=== PATIENT | male | born 1965 | race Two or more races ===

== ENCOUNTER 2021-05-04 01:48 | Observation (INO) | payer OTHER ==
[~2021-05-04] VITALS: Ht 167.6 cm; Wt 100.5 kg
--- NOTE | 2021-05-04 01:58 | PHYS DOC ---
Past Medical History Past Medical History: Angina, Asthma, CAD, Diabetes-Type II, [place] Additional Past Surgical Histo: Cardiac stents Smoking Status: Former Smoker Alcohol Use: None Drug Use: None General Adult EDM: Chief Complaint: CHEST PAIN HPI: HPI: Patient is a 56 year old male presents with report of midsternal chest pain with radiation to left arm that occurred upon laying down to bed this evening. Patient reports sensation of shooting pain down his left side. Patient does report history of angina and trialed taking 3 of his sublingual nitros without improvement. Patient with significant cardiac risk factors including prior CAD with stent placement, high blood pressure, diabetes, and former smoking. Denies trauma. Denies leg swelling or calf tenderness. Denies history of PE/DVT. Denies cough or fever. Denies known exposure to COVID-19. Reports received COVID-19 vaccination with Diagnoplex x2. Review of Systems: Review of Systems: Constitutional: Denies fever or chills Eyes: Denies redness or eye pain HENT: Denies nasal congestion or sore throat Respiratory: Denies cough or shortness of breath Cardiovascular: Reports chest pain; denies palpitations GI: Denies abdominal pain, nausea, or vomiting : Denies dysuria or hematuria Musculoskeletal: Denies back pain or joint pain Integument: Denies rash or skin lesions Neurologic: Denies headache, focal weakness or sensory changes Complete systems were reviewed and found to be within normal limits, except as documented in this note. Heart Score: C/O Chest Pain: Yes HEART Score for Chest Pain: HEART Score for Chest Pain Response (Comments) Value History Moderately Suspicious 1 ECG Normal 0 Age >45 - < 65 1 Risk Factors >3 Risk Factors or Hx CAD 2 Troponin < Normal Limit 0 Total 4 Risk Factors: Risk Factors: DM, Current or recent (<one month) smoker, HTN, HLP, family history of CAD, obesity. Risk Scores: Score 0 - 3: 2.5% MACE over next 6 weeks - Discharge Home Score 4 - 6: 20.3% MACE over next 6 weeks - Admit for Clinical Observation Score 7 - 10: 72.7% MACE over next 6 weeks - Early Invasive Strategies Physical Exam: PE: Constitutional: Well developed, well nourished, no acute distress, non-toxic appearance HENT: Normocephalic, atraumatic Eyes: Conjunctiva normal, no discharge Neck: Normal range of motion, supple Lungs & Thorax: No respiratory distress, equal chest rise and fall Abdomen: Soft, no tenderness Skin: Warm, dry, no erythema, no rash Back: No tenderness, no CVA tenderness Extremities: No tenderness, ROM intact, no edema Neurologic: Alert and oriented X 3, no focal deficits noted Psychologic: Affect anxious, judgment normal EKG: EKG: @0152 Sinus tachycardia at 105bpm, NO ST elevation, QRS 86ms, QT/QTc 304/405ms, q wave in III @0231 Sinus tachycardia at 106bpm, NO ST elevation, QRS 84ms, QT/QTc 308/411ms, No significant change from prior. Radiology/Procedures: Radiology/Procedures: PROCEDURE: CT ANGIOGRAPHY CHEST CT angiogram of the chest with contrast: Reason for examination: Chest pain. Evaluate for pulmonary embolus. Helical images were obtained through the chest with intravenous administration of 100 cc Omnipaque 350 using PE protocol. 3-D MIPS reconstruction was performed in sagittal and coronal planes. Exposure: One or more of the following individualized dose reduction techniques were utilized for this examination: 1. Automated exposure control 2. Adjustment of the mA and/or kV according to patient size 3. Use of iterative reconstruction technique. The trachea and mainstem bronchi show no intraluminal lesions. No abnormality seen at the esophagus. The thoracic aorta is normal in course and caliber. The heart size is normal with no pericardial effusion. There is no evidence of pulmonary embolus. The lung zhu show no infiltrates, pleural effusions or pneumothorax. No acute bony abnormalities are seen thorax. There is fatty infiltration in the liver without a focal lesion. No abnormality seen at the spleen, adrenal glands, gallbladder or pancreas. IMPRESSION: No evidence of pulmonary embolus. Fatty liver. No acute abnormality seen in the chest. Electronically signed by: Alvina Dominguez MD (05/04/2021 4:32 AM) AD Course & Med Decision Making: Course & Med Decision Making Pertinent Labs and Imaging studies reviewed. (See chart for details) Patient with significant cardiac risk factors presents with report of chest pain with radiation to left arm. EKG stable. Labs obtained and posted to chart. Troponin within normal limits. Hyperglycemia addressed. CTA chest without acute process. HEART score 4. Concern may be secondary to unstable angina. Patient requiring admission for further evaluation and treatment. Discussed with Dr. Navas (hospitalist) who is in agreement with admission. Cardiology consultation placed. Discussed findings and plan with patient, who acknowledges understanding and agreement. Robe Disclaimer: Robe Disclaimer: This electronic medical record was generated, in whole or in part, using a voice recognition dictation system. Departure Departure Impression: Primary Impression: Chest pain Qualified Codes: R07.9 - Chest pain, unspecified Additional Impression: Hyperglycemia Disposition: ADMITTED INPATIENT Admitting Physician: JASON Blackwell) Condition: STABLE MECHE ASCENCIO DO May 04, 2021 01:58
[2021-05-04] MEDS ORDERED: IV NORMAL SALINE 1000ML BAG 1,000 ML IV ONE (02:00)
[2021-05-04] MEDS ORDERED: ASPIRIN 325 MG TABLET PO ONE (02:00)
[2021-05-04 02:07] LABS: BASO # 0.1 x10^3/uL (0.0-0.2); BASO % 1 % (0-3); EOS # 0.1 x10^3/uL (0.0-0.7); EOS % 2 % (0-3); HEMATOCRIT 39.8 % (39.0-53.0); HEMOGLOBIN 13.7 g/dL (13.0-17.5); LYMPH # 1.8 x10^3/uL (1.0-4.8); LYMPH % 36 % (24-48); MEAN CORPUSCULAR HEMOGLOBIN 30 pg (25-35); MEAN CORPUSCULAR HGB CONC 35 g/dL (31-37); MEAN CORPUSCULAR VOLUME 88 fL (79-100); MONO # 0.6 x10^3/uL (0.0-1.1); MONO % 13 % (0-9); NEUT # 2.4 x10^3/uL (1.8-7.7); NEUT % 49 % (31-73); PLATELET COUNT 238 x10^3/uL (140-400); RED BLOOD COUNT 4.51 x10^6/uL (4.30-5.70)
[2021-05-04] MEDS ORDERED: fentaNYL PF VIAL 100 MCG/2 ML VIAL IV ONE (02:15)
[2021-05-04 02:17] LABS: CALCIUM 10.4 mg/dL (8.5-10.1); CREATININE 1.1 mg/dL (0.7-1.3); GFR 69.8; POTASSIUM 4.3 mmol/L (3.5-5.1)
[2021-05-04 02:23] LABS: ALBUMIN 3.9 g/dL (3.4-5.0); MAGNESIUM 1.8 mg/dL (1.8-2.4); TOTAL BILIRUBIN 0.4 mg/dL (0.2-1.0); TOTAL PROTEIN 7.9 g/dL (6.4-8.2)
[2021-05-04] MEDS ORDERED: IOHEXOL 350 MG/ML 100 ML VIAL. IV ONE (02:30)
[2021-05-04] MEDS ORDERED: CONTRAST GIVEN. MC PRN (02:45)
[2021-05-04] MEDS ORDERED: NITROGLYCERIN OINT 1 GM PACKET. TP ONE (02:45)
[2021-05-04] MEDS ORDERED: MORPHINE SULFATE 4 MG/ML INJ. IVP ONE (02:45)
--- NOTE | 2021-05-04 02:56 | EKG ---
[facility] [address] [place] [address] Test Date: 2021-05-04 Test Time: 02:31:09 Pat Name: NORY JANE Department: Room: Gender: M Front Edger: : 1965 Requested By: MECHE ASCENCIO Order Number: [id number] Reading MD: Measurements Intervals [place] Rate: 106 P: 90 ID: [id number] QRS: 44 QRSD: 84 T: 57 QT: 308 QTc: 411 Interpretive Statements SINUS TACHYCARDIA NO SPECIFIC ECG ABNORMALITIES RI6.02 Compared to ECG 05/04/2021 01:52:14 No significant changes
--- NOTE | 2021-05-04 02:56 | EKG ---
[facility] [address] [place] [address] Test Date: 2021-05-04 Test Time: 01:52:14 Pat Name: NORY JANE Department: Room: Gender: M Flange Turner: : 1965 Requested By: MECHE ASCENCIO Order Number: [id number] Reading MD: Measurements Intervals [place] Rate: 105 P: 249 HI: 114 QRS: 31 QRSD: 86 T: 56 QT: 304 QTc: 405 Interpretive Statements SINUS TACHYCARDIA OTHERWISE NORMAL ECG RI6.02 No previous ECG available for comparison
[2021-05-04] MEDS ORDERED: DEXTROSE 50% 25 GM / 50ML DISP.SYRIN. IV PRN ×2 (03:15→15:45)
[2021-05-04] MEDS ORDERED: INSULIN LISPRO 300 UNITS/3 ML VIAL. SQ ONE (03:15)
[2021-05-04] MEDS ORDERED: MORPHINE SULFATE 4 MG/ML INJ. IVP PRN (03:15)
[2021-05-04] MEDS ORDERED: ONDANSETRON PF 4 MG/2 ML VIAL. IVP PRN ×2 (03:15→15:45)
[2021-05-04] MEDS ORDERED: LABETALOL 20 MG/4 ML DISP.SYRIN. IVP PRN (03:30)
--- NOTE | 2021-05-04 04:34 | RAD ---
CT angiogram of the chest with contrast: Reason for examination: Chest pain. Evaluate for pulmonary embolus. Helical images were obtained through the chest with intravenous administration of 100 cc Omnipaque 35 0 using PE protocol. 3-D MIPS reconstruction was performed in sagittal and coronal planes. Exposure: One or more of the following individualized dose reduction techniques were utilized for thi s examination: 1. Automated exposure control 2. Adjustment of the mA and/or kV according to patient size 3. Use of iterative reconstruction technique. The trachea and mainstem bronchi show no intraluminal lesions. No abnormality seen at the esophagus. The thoracic aorta is normal in course and caliber. The heart size is normal with no pericardial effu danitza. There is no evidence of pulmonary embolus. The lung zhu show no infiltrates, pleural effusio ns or pneumothorax. No acute bony abnormalities are seen thorax. There is fatty infiltration in the liver without a focal lesion. No abnormality seen at the spleen, a drenal glands, gallbladder or pancreas. IMPRESSION: No evidence of pulmonary embolus. Fatty liver. No acute abnormality seen in the chest. Electronically signed by: Alvina Dominguez MD (05/04/2021 4:32 AM) AD
[2021-05-04] MEDS: INSULIN LISPRO 300 UNITS/3 ML VIAL. SQ SCH ×3 (08:00→17:00)
--- NOTE | 2021-05-04 12:24 | PDOC2 ---
CONSULT Date of Consult Date of Consult DATE: 05/04/21 TIME: 12:24 Reason for Consult Reason for Consult: Chest pain Referring Physician Referring Physician: Dr. Navas Identification/Chief Complaint Chief Complaint Chest pain Source Source: Chart review, Patient History of Present Illness Reason for Visit: 56-year-old male with history of coronary artery disease s/p multiple PCI/stents placement at [facility] presented complaining of retrosternal chest pain when he was lying down in bed last night. He stated that the pain improved after he stood up but came back after he laid down again. He described the pain as pressure-like sensation, 10/10 severity and not related to exertion or food intake. His pain did not improve with 3 sublingual nitroglycerin pills but resolved after he received morphine in the ED. He denied any orthopnea/PND, palpitations, syncope or claudication. Past Medical History Past Medical History Coronary artery disease s/p multiple PCI/stents placement at [facility] Asthma Diabetes mellitus type 2 Hypertension Hyperlipidemia Family History Family History Not contributory Social History Social History Patient stopped smoking several years ago and denied any drug abuse Current Problem List Problem List Problems Medical Problems: (1) Chest pain Status: Acute (2) Hyperglycemia Status: Acute Current Medications Current Medications Current Medications Aspirin (Crow Aspirin) 325 mg 1X ONCE PO Last administered on 05/04/21at 02:20; Start 05/04/21 at 02:00; Stop 05/04/21 at 02:16; Status DC Sodium Chloride 1,000 ml @ 1,000 mls/hr 1X ONCE IV Last administered on 05/04/21at 02:00; Start 05/04/21 at 02:00; Stop 05/04/21 at 02:59; Status DC Fentanyl Citrate (Fentanyl 2ml Vial) 50 mcg 1X ONCE IV Last administered on 05/04/21at 02:21; Start 05/04/21 at 02:15; Stop 05/04/21 at 02:16; Status DC Iohexol (Omnipaque 350 Mg/ml) 100 ml 1X ONCE IV Last administered on 05/04/21at 02:49; Start 05/04/21 at 02:30; Stop 05/04/21 at 02:32; Status DC Info (CONTRAST GIVEN -- Rx MONITORING) 1 each PRN DAILY PRN MC SEE COMMENTS; Start 05/04/21 at 02:45; Stop 05/06/21 at 02:44 Morphine Sulfate (Morphine Sulfate) 4 mg 1X ONCE IVP Last administered on 05/04/21at 02:53; Start 05/04/21 at 02:45; Stop 05/04/21 at 02:46; Status DC Nitroglycerin (Nitro-Bid Oint) 1 inch 1X ONCE TP Last administered on 05/04/21at 02:55; Start 05/04/21 at 02:45; Stop 05/04/21 at 02:46; Status DC Insulin Human Lispro (HumaLOG) 14 units 1X ONCE SQ Last administered on 05/04/21at 03:17; Start 05/04/21 at 03:15; Stop 05/04/21 at 03:16; Status DC Ondansetron HCl (Zofran) 4 mg PRN Q8HRS PRN IVP NAUSEA/VOMITING; Start 05/04/21 at 03:15; Stop 05/05/21 at 03:14 Morphine Sulfate (Morphine Sulfate) 4 mg PRN Q2HR PRN IVP PAIN; Start 05/04/21 at 03:15; Stop 05/05/21 at 03:14 Insulin Human Lispro (HumaLOG) 0-5 UNITS TIDWMEALS SQ Last administered on 05/04/21at 12:15; Start 05/04/21 at 08:00 Dextrose (Dextrose 50%-Water Syringe) 12.5 gm PRN Q15MIN PRN IV SEE COMMENTS; Start 05/04/21 at 03:15 Labetalol HCl (Normodyne Iv Push) 10 mg PRN Q2HR PRN IVP HYPERTENSION Last administered on 05/04/21at 03:31; Start 05/04/21 at 03:30; Stop 05/05/21 at 03:29 Allergies Allergies: Coded Allergies: No Known Drug Allergies (Unverified , 05/04/21) ROS PSYCHOLOGICAL ROS: No: Hallucinations Eyes: No Loss of vision HEENT: No: Epistaxis Respiratory: No: Hemoptysis Cardiovascular: yes Chest Pain Gastrointestinal: No Vomiting, No Diarrhea Genitourinary: No Hematuria Neurological: No Seizures Skin: No Rash Physical Exam General: Alert, Oriented X3 HEENT: Atraumatic Lungs: Clear to auscultation Heart: Regular rate Abdomen: Soft Extremities: No edema Neuro: Normal speech Psych/Mental Status: Mood NL Vitals VITALS Vital Signs Date Time Temp Pulse Resp B/P (MAP) Pulse Ox O2 Delivery O2 Flow Rate FiO2 05/04/21 10:51 100 16 144/85 (104) 97 Room Air Labs Labs Laboratory Tests Test 05/04/21 02:00 05/04/21 03:10 05/04/21 07:15 05/04/21 08:02 White Blood Count 5.0 x10^3/uL (4.0-11.0) Red Blood Count 4.51 x10^6/uL (4.30-5.70) Hemoglobin 13.7 g/dL (13.0-17.5) Hematocrit 39.8 % (39.0-53.0) Mean Corpuscular Volume 88 fL (79-100) Mean Corpuscular Hemoglobin 30 pg (25-35) Mean Corpuscular Hemoglobin Concent 35 g/dL (31-37) Red Cell Distribution Width 13.0 % (11.5-14.5) Platelet Count 238 x10^3/uL (140-400) Neutrophils (%) (Auto) 49 % (31-73) Lymphocytes (%) (Auto) 36 % (24-48) Monocytes (%) (Auto) 13 % (0-9) Eosinophils (%) (Auto) 2 % (0-3) Basophils (%) (Auto) 1 % (0-3) Neutrophils # (Auto) 2.4 x10^3/uL (1.8-7.7) Lymphocytes # (Auto) 1.8 x10^3/uL (1.0-4.8) Monocytes # (Auto) 0.6 x10^3/uL (0.0-1.1) Eosinophils # (Auto) 0.1 x10^3/uL (0.0-0.7) Basophils # (Auto) 0.1 x10^3/uL (0.0-0.2) Sodium Level 137 mmol/L (136-145) Potassium Level 4.3 mmol/L (3.5-5.1) Chloride Level 99 mmol/L (98-107) Carbon Dioxide Level 27 mmol/L (21-32) Anion Gap 11 (6-14) Blood Urea Nitrogen 15 mg/dL (8-26) Creatinine 1.1 mg/dL (0.7-1.3) Estimated GFR (Cockcroft-Gault) 69.8 BUN/Creatinine Ratio 14 (6-20) Glucose Level 307 mg/dL (70-99) Calcium Level 10.4 mg/dL (8.5-10.1) Magnesium Level 1.8 mg/dL (1.8-2.4) Total Bilirubin 0.4 mg/dL (0.2-1.0) Aspartate Amino Transf (AST/SGOT) 19 U/L (15-37) Alanine Aminotransferase (ALT/SGPT) 39 U/L (16-63) Alkaline Phosphatase 62 U/L (46-116) Troponin I Quantitative < 0.017 ng/mL (0.000-0.055) 0.191 ng/mL (0.000-0.055) FC-Auq-F-Type Natriuretic Peptide 106 pg/mL (0-124) Total Protein 7.9 g/dL (6.4-8.2) Albumin 3.9 g/dL (3.4-5.0) Albumin/Globulin Ratio 1.0 (1.0-1.7) Lipase 191 U/L (73-393) SARS-CoV-2 Antigen (Rapid) Negative (NEGATIVE) Glucose (Fingerstick) 294 mg/dL (70-99) Test 05/04/21 10:36 05/04/21 12:13 Troponin I Quantitative 0.365 ng/mL (0.000-0.055) Glucose (Fingerstick) 202 mg/dL (70-99) Laboratory Tests Test 05/04/21 02:00 05/04/21 03:10 05/04/21 07:15 05/04/21 08:02 White Blood Count 5.0 x10^3/uL (4.0-11.0) Red Blood Count 4.51 x10^6/uL (4.30-5.70) Hemoglobin 13.7 g/dL (13.0-17.5) Hematocrit 39.8 % (39.0-53.0) Mean Corpuscular Volume 88 fL (79-100) Mean Corpuscular Hemoglobin 30 pg (25-35) Mean Corpuscular Hemoglobin Concent 35 g/dL (31-37) Red Cell Distribution Width 13.0 % (11.5-14.5) Platelet Count 238 x10^3/uL (140-400) Neutrophils (%) (Auto) 49 % (31-73) Lymphocytes (%) (Auto) 36 % (24-48) Monocytes (%) (Auto) 13 % (0-9) Eosinophils (%) (Auto) 2 % (0-3) Basophils (%) (Auto) 1 % (0-3) Neutrophils # (Auto) 2.4 x10^3/uL (1.8-7.7) Lymphocytes # (Auto) 1.8 x10^3/uL (1.0-4.8) Monocytes # (Auto) 0.6 x10^3/uL (0.0-1.1) Eosinophils # (Auto) 0.1 x10^3/uL (0.0-0.7) Basophils # (Auto) 0.1 x10^3/uL (0.0-0.2) Sodium Level 137 mmol/L (136-145) Potassium Level 4.3 mmol/L (3.5-5.1) Chloride Level 99 mmol/L (98-107) Carbon Dioxide Level 27 mmol/L (21-32) Anion Gap 11 (6-14) Blood Urea Nitrogen 15 mg/dL (8-26) Creatinine 1.1 mg/dL (0.7-1.3) Estimated GFR (Cockcroft-Gault) 69.8 BUN/Creatinine Ratio 14 (6-20) Glucose Level 307 mg/dL (70-99) Calcium Level 10.4 mg/dL (8.5-10.1) Magnesium Level 1.8 mg/dL (1.8-2.4) Total Bilirubin 0.4 mg/dL (0.2-1.0) Aspartate Amino Transf (AST/SGOT) 19 U/L (15-37) Alanine Aminotransferase (ALT/SGPT) 39 U/L (16-63) Alkaline Phosphatase 62 U/L (46-116) Troponin I Quantitative < 0.017 ng/mL (0.000-0.055) 0.191 ng/mL (0.000-0.055) RN-Pbl-I-Type Natriuretic Peptide 106 pg/mL (0-124) Total Protein 7.9 g/dL (6.4-8.2) Albumin 3.9 g/dL (3.4-5.0) Albumin/Globulin Ratio 1.0 (1.0-1.7) Lipase 191 U/L (73-393) SARS-CoV-2 Antigen (Rapid) Negative (NEGATIVE) Glucose (Fingerstick) 294 mg/dL (70-99) Test 05/04/21 10:36 05/04/21 12:13 Troponin I Quantitative 0.365 ng/mL (0.000-0.055) Glucose (Fingerstick) 202 mg/dL (70-99) Assessment/Plan Assessment/Plan 1. Chest pain with mixed features in a patient with known history of coronary artery disease s/p multiple stents placement in the past. We will obtain records from [facility]. Slight troponin elevation could be type II/demand ischemia. We will monitor the trend and consider outpatient ischemic evaluation vs cath. Continue current secondary prevention measures. 2. Hypertension: Controlled 3. Hyperlipidemia: Continue statins 4. Diabetes mellitus type 2: Treat per IM Thank you for your consultation CLAY VITAL MD May 04, 2021 12:24
[2021-05-04] MEDS ORDERED: FERR-36 PO (12:30)
[2021-05-04] MEDS ORDERED: LOSA25TA4 PO (12:30)
[2021-05-04] MEDS ORDERED: ISOS120T4 PO (12:30)
[2021-05-04] MEDS ORDERED: ATOR80TA PO (12:30)
[2021-05-04] MEDS ORDERED: CARV25TA PO (12:30)
[2021-05-04] MEDS ORDERED: ASPI-630 PO (12:30)
[2021-05-04] MEDS ORDERED: DULA3PEN SQ (12:30)
[2021-05-04] MEDS ORDERED: PRAS10TA9 PO (12:30)
--- NOTE | 2021-05-04 15:41 | PDOC1 ---
History and Physical Date of Service: DOS: DATE: 05/04/21 TIME: 15:36 Chief Complaint: Chief Complain: Chest pain. History of Present Illness: HPI: Patient is a 56-year-old male with past medical history of CAD, diabetes mellitus type 2, [place] in the past, who presents with substernal chest pain that radiated to the left arm and worsens upon laying down last night. He did take 3 sublingual nitroglycerin without improvement. He is describes the pain as pressure-like and does shoot down on his left side down his left arm. He does have several cardiac risk factors which include CAD with stent placement in the past, hypertension, diabetes, former smoker. Denies fevers, cough, shortness of breath, abdominal pain, diarrhea, dysuria or bloody stools. Patient is Covid vaccinated. Past Medical/Surgical History: PMH/PSH: Past Medical History: Angina, Asthma, CAD, Diabetes-Type II, [place], Cardiac stents Allergies: Allergies: Coded Allergies: No Known Drug Allergies (Unverified , 05/04/21) Family History: Family History: Reviewed with no relevant findings Social History: Social History: Smoking Status: Former Smoker Alcohol Use: None Drug Use: None Current Medications: Current Medications Current Medications Aspirin (Crow Aspirin) 325 mg 1X ONCE PO Last administered on 05/04/21at 02:20; Start 05/04/21 at 02:00; Stop 05/04/21 at 02:16; Status DC Sodium Chloride 1,000 ml @ 1,000 mls/hr 1X ONCE IV Last administered on 05/04/21at 02:00; Start 05/04/21 at 02:00; Stop 05/04/21 at 02:59; Status DC Fentanyl Citrate (Fentanyl 2ml Vial) 50 mcg 1X ONCE IV Last administered on 05/04/21at 02:21; Start 05/04/21 at 02:15; Stop 05/04/21 at 02:16; Status DC Iohexol (Omnipaque 350 Mg/ml) 100 ml 1X ONCE IV Last administered on 05/04/21at 02:49; Start 05/04/21 at 02:30; Stop 05/04/21 at 02:32; Status DC Info (CONTRAST GIVEN -- Rx MONITORING) 1 each PRN DAILY PRN MC SEE COMMENTS; Start 05/04/21 at 02:45; Stop 05/06/21 at 02:44 Morphine Sulfate (Morphine Sulfate) 4 mg 1X ONCE IVP Last administered on 05/04/21at 02:53; Start 05/04/21 at 02:45; Stop 05/04/21 at 02:46; Status DC Nitroglycerin (Nitro-Bid Oint) 1 inch 1X ONCE TP Last administered on 05/04/21at 02:55; Start 05/04/21 at 02:45; Stop 05/04/21 at 02:46; Status DC Insulin Human Lispro (HumaLOG) 14 units 1X ONCE SQ Last administered on 05/04/21at 03:17; Start 05/04/21 at 03:15; Stop 05/04/21 at 03:16; Status DC Ondansetron HCl (Zofran) 4 mg PRN Q8HRS PRN IVP NAUSEA/VOMITING; Start 05/04/21 at 03:15; Stop 05/05/21 at 03:14 Morphine Sulfate (Morphine Sulfate) 4 mg PRN Q2HR PRN IVP PAIN; Start 05/04/21 at 03:15; Stop 05/05/21 at 03:14 Insulin Human Lispro (HumaLOG) 0-5 UNITS TIDWMEALS SQ Last administered on 05/04/21at 12:15; Start 05/04/21 at 08:00 Dextrose (Dextrose 50%-Water Syringe) 12.5 gm PRN Q15MIN PRN IV SEE COMMENTS; Start 05/04/21 at 03:15 Labetalol HCl (Normodyne Iv Push) 10 mg PRN Q2HR PRN IVP HYPERTENSION Last administered on 05/04/21at 03:31; Start 05/04/21 at 03:30; Stop 05/05/21 at 03:29 Active Scripts Active Reported Iron (Ferrous Sulfate) 325 Mg Tablet 1 Tab PO BID 30 Days Aspirin 81 Mg Tab.chew 1 Tab PO DAILY Losartan Potassium 25 Mg Tablet 25 Mg PO DAILY Isosorbide Mononitrate Er (Isosorbide Mononitrate) 120 Mg Tab.er.24h 1 Tab PO DAILY 30 Days Lipitor (Atorvastatin Calcium) 80 Mg Tablet 80 Mg PO DAILY Coreg (Carvedilol) 25 Mg Tablet 25 Mg PO BIDWMEALS Effient (Prasugrel Hcl) 10 Mg Tablet 10 Mg PO DAILY Trulicity (Dulaglutide) 3 Mg/0.5 Ml Pen.injctr 3 Mg SQ WEEKLY ROS: Review of Systems Review of System REVIEW OF SYSTEMS: GENERAL: Denies weakness SKIN: No bruising, hair changes or rashes. EYES: No blurred, double or loss of vision. NOSE AND THROAT: No history of nosebleeds, hoarseness or sore throat. HEART: Positive for chest pain LUNGS: Denies cough, hemoptysis, wheezing or shortness of breath. GASTROINTESTINAL: Denies changes in appetite, nausea, vomiting, diarrhea or constipation. GENITOURINARY: No history of frequency, urgency, hesitancy or nocturia. NEUROLOGIC: Denies history of numbness, tingling, or tremor. PSYCHIATRIC: No history of panic, anxiety or depression. ENDOCRINE: No history of heat or cold intolerance, polyuria or polydipsia. EXTREMITIES: Denies joint pain, pain on walking or stiffness. Physical Exam: Vital Signs: Vital Signs Date Time Temp Pulse Resp B/P (MAP) Pulse Ox O2 Delivery O2 Flow Rate FiO2 05/04/21 14:37 96 16 97 Room Air 05/04/21 11:51 141/82 (101) Physcial Exam: General: Well developed, well nourished, no acute distress, well appearing HEENT: Pupils equally round and reactive to light, EOMI, no discharge, normal conjunctiva Neck: Supple, no nuchal rigidity, no JVD, trachea midline, no tenderness Cardiac: RRR, no murmurs, no gallops, no rubs Chest/Lungs: CTAB, no wheeze, no rhonchi, no crackles Abdomen: soft, non-distended, no guarding, no peritoneal signs, non-tender Back: No tenderness Extremities: no edema, pulses intact, non-tender,capillary refill <3 sec bilateral upper and lower extremities, Neuro: Alert and oriented x 4, no focal deficits, normal speech Labs: Labs: Laboratory Tests Test 05/04/21 02:00 05/04/21 03:10 05/04/21 07:15 05/04/21 08:02 White Blood Count 5.0 x10^3/uL (4.0-11.0) Red Blood Count 4.51 x10^6/uL (4.30-5.70) Hemoglobin 13.7 g/dL (13.0-17.5) Hematocrit 39.8 % (39.0-53.0) Mean Corpuscular Volume 88 fL (79-100) Mean Corpuscular Hemoglobin 30 pg (25-35) Mean Corpuscular Hemoglobin Concent 35 g/dL (31-37) Red Cell Distribution Width 13.0 % (11.5-14.5) Platelet Count 238 x10^3/uL (140-400) Neutrophils (%) (Auto) 49 % (31-73) Lymphocytes (%) (Auto) 36 % (24-48) Monocytes (%) (Auto) 13 % (0-9) Eosinophils (%) (Auto) 2 % (0-3) Basophils (%) (Auto) 1 % (0-3) Neutrophils # (Auto) 2.4 x10^3/uL (1.8-7.7) Lymphocytes # (Auto) 1.8 x10^3/uL (1.0-4.8) Monocytes # (Auto) 0.6 x10^3/uL (0.0-1.1) Eosinophils # (Auto) 0.1 x10^3/uL (0.0-0.7) Basophils # (Auto) 0.1 x10^3/uL (0.0-0.2) Sodium Level 137 mmol/L (136-145) Potassium Level 4.3 mmol/L (3.5-5.1) Chloride Level 99 mmol/L (98-107) Carbon Dioxide Level 27 mmol/L (21-32) Anion Gap 11 (6-14) Blood Urea Nitrogen 15 mg/dL (8-26) Creatinine 1.1 mg/dL (0.7-1.3) Estimated GFR (Cockcroft-Gault) 69.8 BUN/Creatinine Ratio 14 (6-20) Glucose Level 307 mg/dL (70-99) Calcium Level 10.4 mg/dL (8.5-10.1) Magnesium Level 1.8 mg/dL (1.8-2.4) Total Bilirubin 0.4 mg/dL (0.2-1.0) Aspartate Amino Transf (AST/SGOT) 19 U/L (15-37) Alanine Aminotransferase (ALT/SGPT) 39 U/L (16-63) Alkaline Phosphatase 62 U/L (46-116) Troponin I Quantitative < 0.017 ng/mL (0.000-0.055) 0.191 ng/mL (0.000-0.055) ZG-Tss-J-Type Natriuretic Peptide 106 pg/mL (0-124) Total Protein 7.9 g/dL (6.4-8.2) Albumin 3.9 g/dL (3.4-5.0) Albumin/Globulin Ratio 1.0 (1.0-1.7) Lipase 191 U/L (73-393) SARS-CoV-2 RNA (IZAIAH) Negative (Negative) SARS-CoV-2 Antigen (Rapid) Negative (NEGATIVE) Glucose (Fingerstick) 294 mg/dL (70-99) Test 05/04/21 10:36 05/04/21 12:13 Troponin I Quantitative 0.365 ng/mL (0.000-0.055) Glucose (Fingerstick) 202 mg/dL (70-99) Laboratory Tests Test 05/04/21 02:00 05/04/21 03:10 05/04/21 07:15 05/04/21 08:02 White Blood Count 5.0 x10^3/uL (4.0-11.0) Red Blood Count 4.51 x10^6/uL (4.30-5.70) Hemoglobin 13.7 g/dL (13.0-17.5) Hematocrit 39.8 % (39.0-53.0) Mean Corpuscular Volume 88 fL (79-100) Mean Corpuscular Hemoglobin 30 pg (25-35) Mean Corpuscular Hemoglobin Concent 35 g/dL (31-37) Red Cell Distribution Width 13.0 % (11.5-14.5) Platelet Count 238 x10^3/uL (140-400) Neutrophils (%) (Auto) 49 % (31-73) Lymphocytes (%) (Auto) 36 % (24-48) Monocytes (%) (Auto) 13 % (0-9) Eosinophils (%) (Auto) 2 % (0-3) Basophils (%) (Auto) 1 % (0-3) Neutrophils # (Auto) 2.4 x10^3/uL (1.8-7.7) Lymphocytes # (Auto) 1.8 x10^3/uL (1.0-4.8) Monocytes # (Auto) 0.6 x10^3/uL (0.0-1.1) Eosinophils # (Auto) 0.1 x10^3/uL (0.0-0.7) Basophils # (Auto) 0.1 x10^3/uL (0.0-0.2) Sodium Level 137 mmol/L (136-145) Potassium Level 4.3 mmol/L (3.5-5.1) Chloride Level 99 mmol/L (98-107) Carbon Dioxide Level 27 mmol/L (21-32) Anion Gap 11 (6-14) Blood Urea Nitrogen 15 mg/dL (8-26) Creatinine 1.1 mg/dL (0.7-1.3) Estimated GFR (Cockcroft-Gault) 69.8 BUN/Creatinine Ratio 14 (6-20) Glucose Level 307 mg/dL (70-99) Calcium Level 10.4 mg/dL (8.5-10.1) Magnesium Level 1.8 mg/dL (1.8-2.4) Total Bilirubin 0.4 mg/dL (0.2-1.0) Aspartate Amino Transf (AST/SGOT) 19 U/L (15-37) Alanine Aminotransferase (ALT/SGPT) 39 U/L (16-63) Alkaline Phosphatase 62 U/L (46-116) Troponin I Quantitative < 0.017 ng/mL (0.000-0.055) 0.191 ng/mL (0.000-0.055) CM-Ajl-T-Type Natriuretic Peptide 106 pg/mL (0-124) Total Protein 7.9 g/dL (6.4-8.2) Albumin 3.9 g/dL (3.4-5.0) Albumin/Globulin Ratio 1.0 (1.0-1.7) Lipase 191 U/L (73-393) SARS-CoV-2 RNA (IZAIAH) Negative (Negative) SARS-CoV-2 Antigen (Rapid) Negative (NEGATIVE) Glucose (Fingerstick) 294 mg/dL (70-99) Test 05/04/21 10:36 05/04/21 12:13 Troponin I Quantitative 0.365 ng/mL (0.000-0.055) Glucose (Fingerstick) 202 mg/dL (70-99) Images: Images PROCEDURE: CT ANGIOGRAPHY CHEST CT angiogram of the chest with contrast: Reason for examination: Chest pain. Evaluate for pulmonary embolus. Helical images were obtained through the chest with intravenous administration of 100 cc Omnipaque 350 using PE protocol. 3-D MIPS reconstruction was performed in sagittal and coronal planes. Exposure: One or more of the following individualized dose reduction techniques were utilized for this examination: 1. Automated exposure control 2. Adjustment of the mA and/or kV according to patient size 3. Use of iterative reconstruction technique. The trachea and mainstem bronchi show no intraluminal lesions. No abnormality seen at the esophagus. The thoracic aorta is normal in course and caliber. The heart size is normal with no pericardial effusion. There is no evidence of pulmonary embolus. The lung zhu show no infiltrates, pleural effusions or pneumothorax. No acute bony abnormalities are seen thorax. There is fatty infiltration in the liver without a focal lesion. No abnormality seen at the spleen, adrenal glands, gallbladder or pancreas. IMPRESSION: No evidence of pulmonary embolus. Fatty liver. No acute abnormality seen in the chest. Assessment/Plan Assessment/Plan Chest pain concerning for unstable angina/NSTEMI Hyperglycemia History of diabetes mellitus type 2, likely uncontrolled History of CAD with stents History of hypertension Obesity class II Fatty liver disease EKG showing no acute ST elevations Troponin elevated to 0.19 and 0.365 Continue aspirin, consider Plavix if intermediate risk will defer this to cardiology Cardiology consulted for left heart cath tomorrow Continue nitroglycerin as needed for pain Continue beta-sd if blood pressures allow Continue high intensity statins IV morphine as needed Consider Lovenox Maintain O2 sats between 88 to 95% Trend troponins Repeat EKG in the a.m. Continue telemetry monitoring Monitor for electrolyte abnormalities Avoid NSAIDs Justifications for Admission Other Justification GARY GEORGES MD May 04, 2021 15:41
[2021-05-04] MEDS ORDERED: SENNOSIDES 8.6 MG TABLET PO PRN (15:45)
[2021-05-04] MEDS ORDERED: PROCHLORPERAZINE 10 MG/2 ML VIAL. IV PRN (15:45)
[2021-05-04] MEDS ORDERED: MORPHINE SULFATE 2 MG/ML INJ. IVP PRN (15:45)
[2021-05-04] MEDS ORDERED: MORPHINE SULFATE 2 MG/ML INJ. IV PRN (15:45)
[2021-05-04] MEDS ORDERED: ACETAMINOPHEN 325 MG TABLET. PO PRN (15:45)
[2021-05-04] MEDS ORDERED: NITROGLYCERIN SUBLINGUAL 0.4 MG BOTTLE OF 25. SL PRN (15:45)
[2021-05-04] MEDS ORDERED: DOCUSATE SODIUM 100 MG CAPSULE. PO PRN (15:45)
[2021-05-04 18:35] VITALS: BP 155/108
[2021-05-04 23:25] VITALS: BP 148/91
[2021-05-05 03:35] VITALS: BP 148/96
[2021-05-05 05:35] LABS: BASO % 1 % (0-3); EOS # 0.1 x10^3/uL (0.0-0.7); EOS % 2 % (0-3); HEMATOCRIT 39.6 % (39.0-53.0); HEMOGLOBIN 13.6 g/dL (13.0-17.5); LYMPH # 1.8 x10^3/uL (1.0-4.8); LYMPH % 32 % (24-48); MEAN CORPUSCULAR HEMOGLOBIN 31 pg (25-35); MEAN CORPUSCULAR HGB CONC 34 g/dL (31-37); MEAN CORPUSCULAR VOLUME 89 fL (79-100); MONO # 0.6 x10^3/uL (0.0-1.1); MONO % 11 % (0-9); NEUT % 54 % (31-73); PLATELET COUNT 244 x10^3/uL (140-400); RED BLOOD COUNT 4.45 x10^6/uL (4.30-5.70); WHITE BLOOD COUNT 5.6 x10^3/uL (4.0-11.0)
[2021-05-05 05:58] LABS: CALCIUM 9.2 mg/dL (8.5-10.1); GFR 77.9; MAGNESIUM 1.7 mg/dL (1.8-2.4); PHOSPHORUS 3.7 mg/dL (2.6-4.7)
[2021-05-05 06:00] LABS: CHOLESTEROL/HDL RATIO 6.9
[2021-05-05] MEDS ORDERED: PANT40TA77 PO (06:38)
[2021-05-05] MEDS ORDERED: OMEG-152 PO (06:38)
[2021-05-05] MEDS ORDERED: FLUT1DIS IH (06:38)
[2021-05-05] MEDS ORDERED: CHOL10004 PO (06:38)
[2021-05-05] MEDS ORDERED: GLIP10TA13 PO (06:38)
[2021-05-05] MEDS ORDERED: METF10007 PO (06:38)
[2021-05-05 07:00] VITALS: BP 130/102
[2021-05-05] MEDS: INSULIN LISPRO 300 UNITS/3 ML VIAL. SQ SCH ×3 (08:00→17:17)
[2021-05-05] MEDS ORDERED: MAGNESIUM SULFATE 2GM 50 ML IV ONE (08:15)
[2021-05-05 11:00] VITALS: BP 147/95
[2021-05-05] MEDS: ASPIRIN ENTERIC COATED 81 MG TABLET.DR. PO SCH (11:43)
--- NOTE | 2021-05-05 13:16 | PDOC ---
PROGRESS NOTES Date of Service: DATE: 05/05/21 TIME: 13:14 Subjective Subjective Chest pain resolved. Denied any shortness of breath. Objective Objective Vital Signs Date Time Temp Pulse Resp B/P (MAP) Pulse Ox O2 Delivery O2 Flow Rate FiO2 05/05/21 11:00 97.8 90 17 147/95 (112) 95 Room Air 97.8 Intake and Output 05/05/21 07:00 Intake Total 400 ml Balance 400 ml Intake Oral 400 ml # Voids 1 Physical Exam Abdomen: Soft Heart: Regular rate Extremities: No edema General: Alert, Oriented X3 HEENT: Atraumatic Lungs: Clear to auscultation Neuro: Normal speech Psych/Mental Status: Mood NL Assessment Assessment 1. Chest pain with atypical features and probably GI etiology. Patient has known history of coronary artery disease s/p multiple stents placement in the past. Slight troponin elevation most probably demand ischemia. We will obtain records from [facility]. Consider ischemic evaluation as an outpatient. Continue current secondary prevention measures. 2. Hypertension: Controlled 3. Hyperlipidemia: Continue statins 4. Diabetes mellitus type 2: Treat per IM Plan Plan of Care Problems Medical Problems: (1) Chest pain Status: Acute (2) Hyperglycemia Status: Acute Comment Review of Relevant I have reviewed the following items kaylie (where applicable) has been applied. Labs Laboratory Tests Test 05/04/21 17:07 05/04/21 20:52 05/05/21 05:00 05/05/21 07:46 Glucose (Fingerstick) 188 mg/dL (70-99) 190 mg/dL (70-99) 185 mg/dL (70-99) White Blood Count 5.6 x10^3/uL (4.0-11.0) Red Blood Count 4.45 x10^6/uL (4.30-5.70) Hemoglobin 13.6 g/dL (13.0-17.5) Hematocrit 39.6 % (39.0-53.0) Mean Corpuscular Volume 89 fL (79-100) Mean Corpuscular Hemoglobin 31 pg (25-35) Mean Corpuscular Hemoglobin Concent 34 g/dL (31-37) Red Cell Distribution Width 13.0 % (11.5-14.5) Platelet Count 244 x10^3/uL (140-400) Neutrophils (%) (Auto) 54 % (31-73) Lymphocytes (%) (Auto) 32 % (24-48) Monocytes (%) (Auto) 11 % (0-9) Eosinophils (%) (Auto) 2 % (0-3) Basophils (%) (Auto) 1 % (0-3) Neutrophils # (Auto) 3.0 x10^3/uL (1.8-7.7) Lymphocytes # (Auto) 1.8 x10^3/uL (1.0-4.8) Monocytes # (Auto) 0.6 x10^3/uL (0.0-1.1) Eosinophils # (Auto) 0.1 x10^3/uL (0.0-0.7) Basophils # (Auto) 0.0 x10^3/uL (0.0-0.2) Sodium Level 142 mmol/L (136-145) Potassium Level 4.0 mmol/L (3.5-5.1) Chloride Level 104 mmol/L (98-107) Carbon Dioxide Level 30 mmol/L (21-32) Anion Gap 8 (6-14) Blood Urea Nitrogen 10 mg/dL (8-26) Creatinine 1.0 mg/dL (0.7-1.3) Estimated GFR (Cockcroft-Gault) 77.9 Glucose Level 187 mg/dL (70-99) Calcium Level 9.2 mg/dL (8.5-10.1) Phosphorus Level 3.7 mg/dL (2.6-4.7) Magnesium Level 1.7 mg/dL (1.8-2.4) Triglycerides Level 158 mg/dL (0-150) Cholesterol Level 166 mg/dL (0-200) LDL Cholesterol, Calculated 110 mg/dL (0-100) VLDL Cholesterol, Calculated 32 mg/dL (0-40) Non-HDL Cholesterol Calculated 142 mg/dL (0-129) HDL Cholesterol 24 mg/dL (40-60) Cholesterol/HDL Ratio 6.9 Test 05/05/21 11:10 05/05/21 11:28 Troponin I Quantitative 0.334 ng/mL (0.000-0.055) Glucose (Fingerstick) 194 mg/dL (70-99) Medications Current Medications Acetaminophen (Tylenol) 650 mg PRN Q4HRS PRN PO TEMP OVER 100.4F OR MILD PAIN; Start 05/04/21 at 15:45 Aspirin (Ecotrin) 81 mg DAILYWBKFT PO Last administered on 05/05/21at 11:43; Start 05/05/21 at 08:00 Dextrose (Dextrose 50%-Water Syringe) 12.5 gm PRN Q15MIN PRN IV SEE COMMENTS; Start 05/04/21 at 15:45 Docusate Sodium (Colace) 100 mg PRN DAILY PRN PO HARD STOOLS; Start 05/04/21 at 15:45 Magnesium Sulfate 50 ml @ 25 mls/hr 1X ONCE IV Last administered on 05/05/21at 09:03; Start 05/05/21 at 08:15; Stop 05/05/21 at 10:14; Status DC Morphine Sulfate (Morphine Sulfate) 1 mg PRN Q1HR PRN IV PAIN; Start 05/04/21 at 15:45 Morphine Sulfate (Morphine Sulfate) 2 mg PRN Q2HR PRN IVP SEVERE PAIN 7-10; Start 05/04/21 at 15:45; Stop 05/05/21 at 15:44 Nitroglycerin (Nitrostat) 0.4 mg PRN Q5MIN PRN SL CHEST PAIN; Start 05/04/21 at 15:45 Ondansetron HCl (Zofran) 4 mg PRN Q6HRS PRN IVP NAUSEA/VOMITING; Start 05/04/21 at 15:45 Prochlorperazine Edisylate (Compazine) 10 mg PRN Q6HRS PRN IV NAUSEA/VOMITING - 2ND CHOICE; Start 05/04/21 at 15:45 Sennosides (Senna) 17.2 mg PRN BID PRN PO CONSTIPATION; Start 05/04/21 at 15:45 Vitals/I & O Vital Sign - Last 24 Hours 05/04/21 05/04/21 05/04/21 05/04/21 14:37 18:10 18:35 20:00 Temp 98.1 98.1 Pulse 96 92 91 Resp 16 20 18 B/P (MAP) 157/96 (116) 155/108 (124) Pulse Ox 97 98 98 O2 Delivery Room Air Room Air Room Air Room Air 05/04/21 05/05/21 05/05/21 05/05/21 23:25 03:35 07:00 08:00 Temp 98.3 98.2 97.8 98.3 98.2 97.8 Pulse 94 89 85 Resp 18 18 17 B/P (MAP) 148/91 (110) 148/96 (113) 130/102 (111) Pulse Ox 96 97 95 O2 Delivery Room Air Room Air Room Air Room Air 05/05/21 11:00 Temp 97.8 97.8 Pulse 90 Resp 17 B/P (MAP) 147/95 (112) Pulse Ox 95 O2 Delivery Room Air Intake and Output 05/04/21 05/04/21 05/05/21 15:00 23:00 07:00 Intake Total 200 ml 200 ml Balance 200 ml 200 ml CLAY VITAL MD May 05, 2021 13:16
--- NOTE | 2021-05-05 13:50 | PDOC ---
[employer] PROGRESS NOTE Date of Service DOS: DATE: 05/05/21 TIME: 13:32 Chief Complaint Chief Complaint Chest pain concerning for unstable angina/NSTEMI Hyperglycemia History of diabetes mellitus type 2, likely uncontrolled History of CAD with stents History of hypertension Obesity class II Fatty liver disease We will continue to observe for further chest pain Pending records from [facility] Repeat another troponin EKG showing no acute ST elevations Troponin elevated to 0.19 and 0.365 Continue aspirin, consider Plavix if intermediate risk will defer this to cardiology Continue nitroglycerin as needed for pain Continue beta-sd if blood pressures allow Continue high intensity statins IV morphine as needed Consider Lovenox Maintain O2 sats between 88 to 95% Trend troponins Repeat EKG in the a.m. Continue telemetry monitoring Monitor for electrolyte abnormalities Avoid NSAIDs History of Present Illness History of Present Illness 56-year-old male with past medical history of CAD, diabetes mellitus type 2, [place] in the past, who presents with substernal chest pain that radiated to the left arm and worsens upon laying down last night. He did take 3 sublingual nitroglycerin without improvement. He is describes the pain as pressure-like and does shoot down on his left side down his left arm. He does have several cardiac risk factors which include CAD with stent placement in the past, hypertension, diabetes, former smoker. Denies fevers, cough, shortness of breath, abdominal pain, diarrhea, dysuria or bloody stools. Patient is Covid vaccinated. 05/05/2021 No acute events overnight. Patient is chest pain has nearly resolved. Troponins are stable. Will await further recommendations from cardiology. At this point we are waiting for records from [facility]. Patient's chart, labs, images were reviewed and discussed with RN Vitals/I&O Vitals/I&O: Vital Signs Date Time Temp Pulse Resp B/P (MAP) Pulse Ox O2 Delivery O2 Flow Rate FiO2 05/05/21 11:00 97.8 90 17 147/95 (112) 95 Room Air 97.8 I & O 05/04/21 05/04/21 05/05/21 15:00 23:00 07:00 Intake Total 200 ml 200 ml Balance 200 ml 200 ml Physical Exam General: Alert, Oriented X3 Heart: Regular rate Abdomen: Soft Extremities: No edema Labs Labs: Laboratory Tests Test 05/04/21 17:07 05/04/21 20:52 05/05/21 05:00 05/05/21 07:46 Glucose (Fingerstick) 188 mg/dL (70-99) 190 mg/dL (70-99) 185 mg/dL (70-99) White Blood Count 5.6 x10^3/uL (4.0-11.0) Red Blood Count 4.45 x10^6/uL (4.30-5.70) Hemoglobin 13.6 g/dL (13.0-17.5) Hematocrit 39.6 % (39.0-53.0) Mean Corpuscular Volume 89 fL (79-100) Mean Corpuscular Hemoglobin 31 pg (25-35) Mean Corpuscular Hemoglobin Concent 34 g/dL (31-37) Red Cell Distribution Width 13.0 % (11.5-14.5) Platelet Count 244 x10^3/uL (140-400) Neutrophils (%) (Auto) 54 % (31-73) Lymphocytes (%) (Auto) 32 % (24-48) Monocytes (%) (Auto) 11 % (0-9) Eosinophils (%) (Auto) 2 % (0-3) Basophils (%) (Auto) 1 % (0-3) Neutrophils # (Auto) 3.0 x10^3/uL (1.8-7.7) Lymphocytes # (Auto) 1.8 x10^3/uL (1.0-4.8) Monocytes # (Auto) 0.6 x10^3/uL (0.0-1.1) Eosinophils # (Auto) 0.1 x10^3/uL (0.0-0.7) Basophils # (Auto) 0.0 x10^3/uL (0.0-0.2) Sodium Level 142 mmol/L (136-145) Potassium Level 4.0 mmol/L (3.5-5.1) Chloride Level 104 mmol/L (98-107) Carbon Dioxide Level 30 mmol/L (21-32) Anion Gap 8 (6-14) Blood Urea Nitrogen 10 mg/dL (8-26) Creatinine 1.0 mg/dL (0.7-1.3) Estimated GFR (Cockcroft-Gault) 77.9 Glucose Level 187 mg/dL (70-99) Calcium Level 9.2 mg/dL (8.5-10.1) Phosphorus Level 3.7 mg/dL (2.6-4.7) Magnesium Level 1.7 mg/dL (1.8-2.4) Triglycerides Level 158 mg/dL (0-150) Cholesterol Level 166 mg/dL (0-200) LDL Cholesterol, Calculated 110 mg/dL (0-100) VLDL Cholesterol, Calculated 32 mg/dL (0-40) Non-HDL Cholesterol Calculated 142 mg/dL (0-129) HDL Cholesterol 24 mg/dL (40-60) Cholesterol/HDL Ratio 6.9 Test 05/05/21 11:10 05/05/21 11:28 Troponin I Quantitative 0.334 ng/mL (0.000-0.055) Glucose (Fingerstick) 194 mg/dL (70-99) Assessment and Plan Assessmemt and Plan Problems Medical Problems: (1) Chest pain Status: Acute (2) Hyperglycemia Status: Acute Comment Review of Relevant I have reviewed the following items kaylie (where applicable) has been applied. Medications: Current Medications Medications (Trade) Dose Ordered Sig/Yaneth Route PRN Reason Start Time Stop Time Status Last Admin Dose Admin Aspirin (Ecotrin) 81 mg DAILYWBKFT PO 05/05/21 08:00 05/05/21 11:43 Magnesium Sulfate 50 ml @ 25 mls/hr 1X ONCE IV 05/05/21 08:15 05/05/21 10:14 DC 05/05/21 09:03 Justifications for Admission Other Justification Chest pain rule out non-STEMI GARY GEORGES MD May 05, 2021 13:50
--- NOTE | 2021-05-05 14:57 | NUR ---
SS following for discharge planning. SS reviewed pt chart and discussed with pt RN. Pt is from home and is currently on room air. COVID19 negative. Cardiology following. Self pay. [facility] following. Per Jennifer in [facility], pt has active [employer]. SS will continue to follow for discharge planning.
[2021-05-05 15:00] VITALS: BP 139/96
[2021-05-05] MEDS ORDERED: ALBU2.5V8 IH (15:08)
[2021-05-05] MEDS: CARVEDILOL 12.5 MG TABLET. PO SCH (16:07)
[2021-05-05] MEDS: PANTOPRAZOLE 40 MG TABLET.DR. PO SCH (16:07)
[2021-05-05] MEDS: ISOSORBIDE MONONITRATE ER 30 MG TAB.ER.24H PO SCH (16:08)
[2021-05-05] MEDS: LOSARTAN POTASSIUM 25 MG TABLET. PO SCH (16:08)
[2021-05-05 19:00] VITALS: BP 111/88
[2021-05-05] MEDS ORDERED: ATORVASTATIN CALCIUM 40 MG TABLET. PO SCH (21:00)
[2021-05-05 23:02] VITALS: BP 120/85
[2021-05-06 02:48] VITALS: BP 128/73
[2021-05-06] MEDS: PANTOPRAZOLE 40 MG TABLET.DR. PO SCH (06:14)
[2021-05-06 06:29] LABS: BASO % 1 % (0-3); EOS # 0.1 x10^3/uL (0.0-0.7); EOS % 3 % (0-3); HEMATOCRIT 37.4 % (39.0-53.0); HEMOGLOBIN 12.9 g/dL (13.0-17.5); LYMPH # 1.8 x10^3/uL (1.0-4.8); LYMPH % 35 % (24-48); MEAN CORPUSCULAR HEMOGLOBIN 31 pg (25-35); MEAN CORPUSCULAR HGB CONC 35 g/dL (31-37); MEAN CORPUSCULAR VOLUME 89 fL (79-100); MONO # 0.7 x10^3/uL (0.0-1.1); MONO % 13 % (0-9); NEUT # 2.5 x10^3/uL (1.8-7.7); NEUT % 48 % (31-73); PLATELET COUNT 245 x10^3/uL (140-400); RED BLOOD COUNT 4.21 x10^6/uL (4.30-5.70); RED CELL DISTRIBUTION WIDTH 13.1 % (11.5-14.5); WHITE BLOOD COUNT 5.2 x10^3/uL (4.0-11.0)
[2021-05-06 07:00] VITALS: BP 119/84
[2021-05-06 07:06] LABS: CALCIUM 8.9 mg/dL (8.5-10.1); GFR 77.9; POTASSIUM 4.1 mmol/L (3.5-5.1)
[2021-05-06] MEDS: ASPIRIN ENTERIC COATED 81 MG TABLET.DR. PO SCH (07:54)
[2021-05-06] MEDS: CARVEDILOL 12.5 MG TABLET. PO SCH (07:54)
[2021-05-06] MEDS: ISOSORBIDE MONONITRATE ER 30 MG TAB.ER.24H PO SCH (07:55)
[2021-05-06] MEDS: LOSARTAN POTASSIUM 25 MG TABLET. PO SCH (07:55)
[2021-05-06] MEDS: INSULIN LISPRO 300 UNITS/3 ML VIAL. SQ SCH ×2 (07:56→11:57)
[2021-05-06 11:00] VITALS: BP 120/77
--- NOTE | 2021-05-06 11:19 | PDOC ---
MAGALY AYALA STONECUTTER APPRENTICE HAND 05/06/21 1119: CARDIO Progress Notes Date and Time Date of Service 05/06/21 Time of Evaluation 1120 Subjective Subjective: No Chest Pain, No shortness of breath, No Palpitations Vitals Vitals Vital Signs Date Time Temp Pulse Resp B/P (MAP) Pulse Ox O2 Delivery O2 Flow Rate FiO2 05/06/21 11:00 98.2 98 20 120/77 (91) Room Air 98.2 05/06/21 08:00 99.0 05/06/21 02:48 99 Weight Weight [ ] Input and Output Intake and Output Intake and Output 05/06/21 07:00 Intake Total 1100 ml Balance 1100 ml Intake Oral 1100 ml # Voids 1 Laboratory Labs Laboratory Tests Test 05/05/21 11:28 05/05/21 17:13 05/05/21 20:29 05/06/21 05:15 Glucose (Fingerstick) 194 mg/dL (70-99) 187 mg/dL (70-99) 290 mg/dL (70-99) White Blood Count 5.2 x10^3/uL (4.0-11.0) Red Blood Count 4.21 x10^6/uL (4.30-5.70) Hemoglobin 12.9 g/dL (13.0-17.5) Hematocrit 37.4 % (39.0-53.0) Mean Corpuscular Volume 89 fL (79-100) Mean Corpuscular Hemoglobin 31 pg (25-35) Mean Corpuscular Hemoglobin Concent 35 g/dL (31-37) Red Cell Distribution Width 13.1 % (11.5-14.5) Platelet Count 245 x10^3/uL (140-400) Neutrophils (%) (Auto) 48 % (31-73) Lymphocytes (%) (Auto) 35 % (24-48) Monocytes (%) (Auto) 13 % (0-9) Eosinophils (%) (Auto) 3 % (0-3) Basophils (%) (Auto) 1 % (0-3) Neutrophils # (Auto) 2.5 x10^3/uL (1.8-7.7) Lymphocytes # (Auto) 1.8 x10^3/uL (1.0-4.8) Monocytes # (Auto) 0.7 x10^3/uL (0.0-1.1) Eosinophils # (Auto) 0.1 x10^3/uL (0.0-0.7) Basophils # (Auto) 0.0 x10^3/uL (0.0-0.2) Sodium Level 139 mmol/L (136-145) Potassium Level 4.1 mmol/L (3.5-5.1) Chloride Level 104 mmol/L (98-107) Carbon Dioxide Level 27 mmol/L (21-32) Anion Gap 8 (6-14) Blood Urea Nitrogen 11 mg/dL (8-26) Creatinine 1.0 mg/dL (0.7-1.3) Estimated GFR (Cockcroft-Gault) 77.9 Glucose Level 250 mg/dL (70-99) Calcium Level 8.9 mg/dL (8.5-10.1) Magnesium Level 2.0 mg/dL (1.8-2.4) Test 05/06/21 07:43 Glucose (Fingerstick) 277 mg/dL (70-99) Physical Exam HEENT: Neck Supple W Full Motion Chest: Symmetric LUNGS: Clear to Auscultation Heart: RRR Abdomen: Soft N/T Extremities: No Edema Neurology: alert, oriented, follow commands Assessment Assessment 1. Chest pain with atypical features 2. Mild troponin elevation; peak 0.36. most probably type II, demand ischemia 3. CAD s/p PCI/stents to RCA and LCx. Cath 2015 showed diffused small vessel CAD, lesions not ideal candidate for PCI. LVEF 45%. initiated on antianginals. Echo 12/17 with LVEF 55-60%. Follows with Dr. Mello at [facility] 4. Hypertension; Controlled 5. Hyperlipidemia; statin 6. Diabetes, II Recommendations Secondary prevention; ASA/statin, BB, imdur Outpatient ischemic evaluation Follow up with primary cake cutter machine upon discharge. Justicifation of Admission Dx: Justifications for Admission: Justification of Admission Dx: Yes Comments: Chest pain CAD CLAY VITAL MD 05/07/21 1248: CARDIO Progress Notes Assessment Assessment Patient seen and examined 05/06/2021. Agree with SECONDARY CONNECTOR ARMATURE's assessment and plan. Chest pain with atypical features. Slight troponin elevation probably demand ischemia. Chronic systolic heart failure well compensated. Follow-up with primary cake cutter machine for possible outpatient ischemic evaluation. MAGALY AYALA APRN May 06, 2021 11:19 CLAY VITAL MD May 07, 2021 12:48
--- NOTE | 2021-05-06 13:15 | NUR ---
SS following up with discharge planning. SS reviewed pt chart and discussed with pt RN. Pt is from home and is currently on room air. COVID19 negative. Cardiology following and signed off. Discharge plan is to home. Anticipate discharge to home today. SS will continue to follow for discharge planning.
--- NOTE | 2021-05-06 13:32 | DISCH ---
DISCHARGE INSTRUCTIONS Condition on Discharge Condition on Discharge: Stable Activity After Discharge Activity Instructions for Disc: Activity as tolerated Lifting Instructions after Dis: Do not lift >10 pounds Driving Instructions after Dis: Do not drive today Weight Bearing Status after Di: Full weight bearing Diet after Discharge Diet after Discharge: Cardiac Follow-Up Follow up with: PCP within 2 weeks of discharge Follow Up With: Cardiology as needed or as scheduled GARY GEORGES MD May 06, 2021 13:32
--- NOTE | 2021-05-09 21:43 | PDOC3 ---
[facility]-Discharge Summary Date of Admission: Date of Admission: May 04, 2021 Date of Discharge: Date of Discharge: May 06, 2021 Discharge Diagnosis: Discharge Diagnosis: Chest pain concerning for unstable angina/NSTEMI Hyperglycemia History of diabetes mellitus type 2, likely uncontrolled History of CAD with stents History of hypertension Obesity class II Fatty liver disease Consults: Consults: Cardiology Recommendations Secondary prevention; ASA/statin, BB, imdur Outpatient ischemic evaluation Follow up with primary rapid transit operator upon discharge. Justicifation of Admission Dx: Justifications for Admission: Justification of Admission Dx: Yes Comments: Chest pain CAD CLAY VITAL MD 05/07/21 1248: CARDIO Progress Notes Assessment Assessment Patient seen and examined 05/06/2021. Agree with SEAFOOD SPECIALIST's assessment and plan. Chest pain with atypical features. Slight troponin elevation probably demand ischemia. Chronic systolic heart failure well compensated. Follow-up with primary rapid transit operator for possible outpatient ischemic evaluation. Hospital Course: Hospital Course: 56-year-old male with past medical history of CAD, diabetes mellitus type 2, [place] in the past, who presents with substernal chest pain that radiated to the left arm and worsens upon laying down last night. He did take 3 sublingual nitroglycerin without improvement. He is describes the pain as pressure-like and does shoot down on his left side down his left arm. He does have several cardiac risk factors which include CAD with stent placement in the past, hypertension, diabetes, former smoker. Denies fevers, cough, shortness of br eath, abdominal pain, diarrhea, dysuria or bloody stools. Patient is Covid vaccinated. 05/05/2021 No acute events overnight. Patient is chest pain has nearly resolved. Troponins are stable. Will await further recommendations from cardiology. At this point we are waiting for records from [facility]. Patient's chart, labs, images were reviewed and discussed with RN By day of discharge, pt was clinically stable and ready for discharge. Rest of hospital course was uneventful Disposition: Disposition/Orders: D/C to Home Activity: Activity: Resume previous activity Diet: Diet: Cardiac Medications: Home Meds Reported Medications Albuterol Sulfate (PROAIR HFA INHALER) 8.5 Gm Hfa.aer.ad, 2 PUFF IH PRN Q4-6HRS PRN for wheezing for 21 Days, #1 INHALER 0 Refills 05/05/21 Fluticasone/Salmeterol (ADVAIR 100-50 DISKUS) 1 Each Disk.w.dev, 1 PUFF IH BID f or asthma, #1 INHALER 5 Refills 05/05/21 Cholecalciferol (Vitamin D3) (Vitamin D3 ) 25 Mcg Tablet, 0.5 TAB PO DAILY for SUPPLEMENT, TAB 1,000 UNITS = 25 MCG 05/05/21 Glipizide (GLIPIZIDE) 10 Mg Tablet, 1 TAB PO BIDAC for diabetes, #60 TAB 5 Refills 05/05/21 Metformin Hcl (METFORMIN HCL) 1,000 Mg Tablet, 1000 MG PO BIDWMEALS for Diabetes, TAB 05/05/21 Bath-3/Dha/Epa/Fish Oil (FISH OIL 1,000 MG SOFTGEL) 1 Each Capsule, 2 CAP PO BID for cholesterol for 30 Days, #120 CAP 0 Refills 05/05/21 Pantoprazole Sodium (PANTOPRAZOLE SODIUM ) 40 Mg Tablet.dr, 40 MG PO BID for GERD, TAB 05/05/21 Ferrous Sulfate (IRON) 325 Mg Tablet, 1 TAB PO BID for ANEMIA for 30 Days, #60 TAB 0 Refills 05/04/21 Aspirin (ASPIRIN) 81 Mg Tab.chew, 1 TAB PO DAILY for CAD, #30 TAB 3 Refills 05/04/21 Losartan Potassium (Losartan Potassium) 25 Mg Tablet, 25 MG PO DAILY for HTN, TA B 05/04/21 Isosorbide Mononitrate (ISOSORBIDE MONONITRATE ER) 120 Mg Tab.er.24h, 1 TAB PO DAILY for CAD for 30 Days, #30 TAB 0 Refills 05/04/21 Atorvastatin Calcium (Lipitor) 80 Mg Tablet, 80 MG PO DAILY for CHOLESTEROL, TAB 05/04/21 Carvedilol (COREG) 25 Mg Tablet, 25 MG PO BIDWMEALS for CARDIAC, TAB 05/04/21 Prasugrel Hcl (EFFIENT) 10 Mg Tablet, 10 MG PO DAILY for PO, TAB 05/04/21 Dulaglutide (Trulicity) 3 Mg/0.5 Ml Pen.injctr, 3 MG SQ WEEKLY for DM, EACH on Tuesday05/04/21 Scheduled Aspirin (Aspirin), 1 TAB PO DAILY, (Reported) Atorvastatin Calcium (Lipitor), 80 MG PO DAILY, (Reported) Carvedilol (Coreg), 25 MG PO BIDWMEALS, (Reported) Cholecalciferol (Vitamin D3) (Vitamin D3 ), 0.5 TAB PO DAILY, (Reported) Dulaglutide (Trulicity), 3 MG SQ WEEKLY, (Reported) Ferrous Sulfate (Iron), 1 TAB PO BID, (Reported) Fluticasone/Salmeterol (Advair 100-50 Diskus), 1 PUFF IH BID, (Reported) Glipizide (Glipizide), 1 TAB PO BIDAC, (Reported) Isosorbide Mononitrate (Isosorbide Mononitrate Er), 1 TAB PO DAILY, (Reported) Losartan Potassium (Losartan Potassium), 25 MG PO DAILY, (Reported) Metformin Hcl (Metformin Hcl), 1,000 MG PO BIDWMEALS, (Reported) Bath-3/Dha/Epa/Fish Oil (Fish Oil 1,000 Mg Softgel), 2 CAP PO BID, (Reported) Pantoprazole Sodium (Pantoprazole Sodium ), 40 MG PO BID, (Reported) Prasugrel Hcl (Effient), 10 MG PO DAILY, (Reported) Scheduled PRN Albuterol Sulfate (Proair Hfa Inhaler), 2 PUFF IH PRN Q4-6HRS PRN for wheezing, (Reported) Total Time: Total Time: Total time spent was 33 minutes in preparing scripts, discharge planning with SW and RN, and preparing this discharge summary. Justicifation of Admission Dx: Justifications for Admission: Justification of Admission Dx: Yes GARY GEORGES MD May 09, 2021 21:43
== END 2021-05-06 13:00 | disposition still patient (30) ==
LOC: EDBD 01:48 → ER 01:48 → INTOOBSV 03:15 → ED HOLD 03:15 → 6 SOUTH 03:59
PROVIDERS: ADMIT Family Medicine; ATTEND Family Medicine
DX: R07.2 Precordial pain (principal); Z20.822 Contact with and (suspected) exposure to COVID-19; E11.65 Type 2 diabetes mellitus with hyperglycemia; E66.9 Obesity, unspecified; E78.5 Hyperlipidemia, unspecified; I25.10 Atherosclerotic heart disease of native coronary artery without angina pectoris; I25.2 Old myocardial infarction; J45.909 Unspecified asthma, uncomplicated; K76.0 Fatty (change of) liver, not elsewhere classified; I10 Essential (primary) hypertension; R77.8 Other specified abnormalities of plasma proteins; Z95.5 Presence of coronary angioplasty implant and graft; Z87.891 Personal history of nicotine dependence; Z98.890 Other specified postprocedural states
CPT/HCPCS: 36415; 71275; 80048; 80053; 80061; 82962; 83690; 83735; 83880; 84100; 84484; 85025; 87426; 93005; 96361; 96365; 96366; 96372; 96375; 99285; G0378; J1815; J2270; J3010; J3475; J3490; J7030; Q9967; U0003; U0005; G0379

== ENCOUNTER 2021-06-29 08:38 | Outpatient (CLI) | payer OTHER ==
[2021-06-29] VITALS (12 sets, daily range): BP systolic 110–137; BP diastolic 76–93
[~2021-06-29] VITALS: Ht 170.2 cm; Wt 98.6 kg
[~2021-06-29 08:38] MED LIST: ALBU2.5V8 IH; ASPI-630 PO; ATOR80TA PO; CARV25TA PO; CHOL10004 PO; DULA3PEN SQ; FERR-36 PO; FLUT1DIS IH; GLIP10TA13 PO; ISOS120T4 PO; LOSA25TA4 PO; METF10007 PO; OMEG-152 PO; PANT40TA77 PO; PRAS10TA9 PO
[2021-06-29] MEDS ORDERED: FENO145T3 PO (09:08)
[2021-06-29] MEDS ORDERED: NITR0.4T22 SL (09:08)
[2021-06-29 09:12] LABS: HEMATOCRIT 40.7 % (39.0-53.0); HEMOGLOBIN 13.4 g/dL (13.0-17.5); RED BLOOD COUNT 4.5 x10^6/uL (4.30-5.70); RED CELL DISTRIBUTION WIDTH 13.4 % (11.5-14.5); WHITE BLOOD COUNT 5.7 x10^3/uL (4.0-11.0)
[2021-06-29] MEDS ORDERED: IODIXANOL 320 MG/ML 100 ML VIAL. ONE (09:23)
[2021-06-29] MEDS ORDERED: LIDOCAINE 1% PF 2 ML VIAL. ONE (09:23)
[2021-06-29] MEDS ORDERED: HEPARIN for IV BOLUS 10,000 UNIT/10 ML VIAL. ONE (09:25)
[2021-06-29] MEDS ORDERED: fentaNYL PF VIAL 100 MCG/2 ML VIAL ONE (09:25)
[2021-06-29] MEDS ORDERED: VERAPAMIL 5 MG/2 ML VIAL. ONE (09:25)
[2021-06-29] MEDS ORDERED: MIDAZOLAM HCL/PF 5 MG/5 ML VIAL. ONE (09:25)
[2021-06-29] MEDS ORDERED: NITROGLYCERIN 200 MCG/2 ML SYRINGE FOR CATH/VASC LAB. ONE (09:25)
[2021-06-29 09:27] LABS: CALCIUM 9.6 mg/dL (8.5-10.1); CREATININE 1.1 mg/dL (0.7-1.3); GFR 69.8; POTASSIUM 4.2 mmol/L (3.5-5.1)
[2021-06-29 09:30] LABS: PROTHROMBIN TIME PATIENT 11.5 SEC (11.7-14.0)
[2021-06-29] MEDS ORDERED: LIDOCAINE 1% PF 2 ML VIAL. INJ ONE (09:45)
[2021-06-29] MEDS ORDERED: VERAPAMIL 5 MG/2 ML VIAL. IART ONE (09:45)
[2021-06-29] MEDS ORDERED: fentaNYL PF VIAL 100 MCG/2 ML VIAL IV ONE (09:45)
[2021-06-29] MEDS ORDERED: HEPARIN for IV BOLUS 10,000 UNIT/10 ML VIAL. IART ONE (09:45)
[2021-06-29] MEDS ORDERED: IODIXANOL 320 MG/ML 100 ML VIAL. IART ONE (09:45)
[2021-06-29] MEDS ORDERED: MIDAZOLAM HCL/PF 5 MG/5 ML VIAL. IV ONE (09:45)
[2021-06-29] MEDS ORDERED: NITROGLYCERIN 200 MCG/2 ML SYRINGE FOR CATH/VASC LAB. IART ONE (09:45)
--- NOTE | 2021-06-29 10:19 | PDOC ---
MODERATE SEDATION ASSESSMENT RISKS/ALTERNATIVES Risks/Alternatives Risks and alternatives of this type of sedation and procedure discussed with: RISK/ALTERNATIVES: Patient H & P ON CHART H & P H & P on chart and reviewed for co-morbid conditions and appropriate labs. H&P ON CHART: Yes STATUS PREG STATUS ASSESSED: N/A MEDS/ALLERGIES REVIEWED Meds/Allergies Reviewed Medications and Allergies including time and route of recently administered narcotics and sedatives. MEDS/ALLERGIES REVIEWED: Yes ASA RATING ASA RATING: III AIRWAY ASSESSMENT Airway Assessment Airway patency, oral function limitations, presence of caps, crowns, dentures, partials, and ability to extend neck assessed. AIRWAY ASSESSMENT: Yes MALLAMPATI SCORE MALLAMPATI SCORE: II PRE-SEDATION ASSESSMENT PRE-SEDATION ASSESSMENT: Yes CLAY VITAL MD Jun 29, 2021 10:19
[2021-06-29] MEDS ORDERED: IV 1/2 NORMAL SALINE 1,000 ML IV SCH (10:30)
[2021-06-29] MEDS ORDERED: NITROGLYCERIN SUBLINGUAL 0.4 MG BOTTLE OF 25. SL PRN (10:30)
--- NOTE | 2021-06-29 10:48 | CARD ---
MR#: [id number] Date of Study: 06/29/2021 Ordering Physician: CLAY SHELLEY, Referring Physician: CLAY SHELLEY, Tech: RT Keisha(R) APPROVED REPORT Technologist: Vani Vallecillo RT(R) Nurse: Kalie Trevizo RN Procedure(s) performed: Left heart catheterization, selective coronary angiography and left ventricul ography via right transradial approach MODERATE SEDATION TIME: 46 MINUTES FLUORO TIME: 3.2 MIN DOSE: 58.3 GYCM2 CONTRAST: 98CC VISI INDICATION The indication(s) include : unstable angina . [facility] Clinical Frailty Scale [facility] Clinical Frailty Scale: Mildly Frail Heart Failure Heart Failure: Yes If Yes, Newly Diagnosed: No If Yes, HF Type: Systolic If Yes, NYHA Class: Class II CASE TECHNIQUE IV conscious sedation was used throughout procedure with appropriate monitoring and was performed in the presence of a registered nurse who was an independent trained observer other than the physician p erforming the procedure. During this case, Fluoroscopy and low osmolar contrast were used for imaging . Specimen(s) Removed: No Estimated Blood loss: 15 cc's. PROCEDURE NARRATIVE After explaining the risks, benefits and alternative options, informed consent was obtained from magdalene ent. Patient was brought to the cardiac Waiter/Waitress Room Service and right wrist was prepped and draped in the usual fashion after confirming a positive modified Mihai's test. Arterial access was obtained in the righ t radial artery and a 6 Namibian sheath was inserted. 6 Namibian Jatin catheter was used to perform sang ective angiography of the left and right coronary arteries. 6 Namibian pigtail catheter was used to pe rform left ventriculography. Patient tolerated the procedure well. Hemostasis was achieved using TR band. There were no immediate complications. The following findings were noted. FINDINGS 1. Hemodynamics: Left ventricular end-diastolic pressure of 26 mmHg. No pullback gradient across th e aortic valve. 2. Left ventriculography: Normal left ventricle systolic function with ejection fraction estimated at 55%. No significant mitral regurgitation seen. 3. Coronary angiography: a. The left main coronary artery arose from the left sinus of Valsalva, gave rise to the left anteri or descending and left circumflex arteries and showed 20% ostial segment stenosis. b. The left anterior descending artery showed widely patent previously placed stents in the proximal to mid segment of the left anterior descending artery and the proximal segment of the diagonal branc h. The distal segment of LAD showed 70% stenosis. c. The left circumflex artery showed 90 to 95% in-stent restenosis involving the proximal segment. d. The right coronary artery was a large and dominant vessel arising from the right sinus of Valsalv a that showed long 50% in-stent restenosis involving the proximal and mid segments and a long 90% in- stent restenosis involving the distal segment and extending into the proximal segment of the posterio r descending branch. Conclusion 1. Three-vessel coronary artery disease including severe in-stent restenosis involving right coronar y and left circumflex arteries as described above. 2. Normal left ventricle systolic function with ejection fraction estimated at 55%. Recommendations We will discuss with patient regarding referral for drug-coated balloon angioplasty for in-stent rest enosis versus coronary artery bypass surgery. Cardiovascular risk factor modification. Signed by : Clay Shelley, Electronically Approved : 06/29/2021 10:47:55
--- NOTE | 2021-06-29 12:48 | NUR ---
Discharge Note: NORY JANE Discharge instructions and discharge home medications reviewed with Patient and a copy given. All questions have been answered and understanding verbalized. The following instructions and handouts were given: radial site care and adult moderate sedation Discontinued lines and drains: Peripheral IV intact. Patient discharged to Home or Self Care withFriendvia Wheelchair
--- NOTE | 2021-06-29 13:09 | CARD ---
MR#: [id number] Date of Study: 06/29/2021 Ordering Physician: CLAY SHELLEY, Referring Physician: Kevin LOPEZ: Eduardo Fu [facility] APPROVED REPORT EXAM: Two-dimensional and M-mode echocardiogram with Doppler and color Doppler. Other Information Quality : AverageHR: 94bpm Rhythm : NSR INDICATION Unstable Angina RISK FACTORS Hypertension Obesity Hyperlipidemia 2D DIMENSIONS Left Atrium(2D)3.8 (1.6-4.0cm)IVSd1.3 (0.7-1.1cm) Aortic Root(2D)3.6 (2.0-3.7cm)LVDd4.7 (3.9-5.9cm) LVOT Diameter2.1 (1.8-2.4cm)PWd1.3 (0.7-1.1cm) LVDs2.9 (2.5-4.0cm)FS (%) 38.8 % SV72.1 mlLVEF(%)69.2 (>50%) Aortic Valve AoV Peak Hector.118.0cm/sAoV VTI19.1cm AO Peak GR.5.6mmHgLVOT Peak Hector.88.3cm/s AO Mean GR.3mmHgAVA (VMAX)2.62cm2 Mitral Valve MV E Wekztesg98.4cm/sMV E Peak Gr.4mmHg MV DECEL [id number] A Mocdzhua64.2cm/s MV E Mean Gr.2mmHgE/A Ratio0.8 Pulmonary Valve PV Peak Ijtkfiaf78.2cm/s Tricuspid Valve TR P. Orfsbcro866sx/sTR Peak Gr.11mmHg Pulmonary Vein S1 Mldcowea26.7cm/sD2 Yxohkzpb96.5cm/s LEFT VENTRICLE The left ventricle is normal size. There is mild concentric left ventricular hypertrophy. The left ve ntricular systolic function is normal. The ejection fraction is 55-60%. There is normal LV segmental wall motion. Transmitral Doppler flow pattern is Grade I-abnormal relaxation pattern. No left ventric le thrombus noted on this study. There is no ventricular septal defect visualized. There is no left v entricular aneurysm. There is no mass noted in the left ventricle. RIGHT VENTRICLE The right ventricle is normal size. There is normal right ventricular wall thickness. The right ventr icular systolic function is normal. ATRIA The left atrium size is normal. The right atrium size is normal. The interatrial septum is intact wit h no evidence for an atrial septal defect or patent foramen ovale as noted on 2-D or Doppler imaging. AORTIC VALVE The aortic valve is mildly to moderately sclerotic. The aortic valve is trileaflet. Doppler and Color Flow revealed no significant aortic regurgitation. There is no significant aortic valvular stenosis. There is no aortic valvular vegetation. MITRAL VALVE Mitral annular calcification is borderline. There is no evidence of mitral valve prolapse. There is n o mitral valve stenosis. Doppler and Color-flow revealed trace mitral regurgitation. TRICUSPID VALVE The tricuspid valve is normal in structure and function. Doppler and Color Flow revealed trace tricus pid regurgitation. There is no tricuspid valve prolapse or vegetation. There is no tricuspid valve st enosis. PULMONIC VALVE The pulmonary valve is normal in structure and function. Doppler and Color Flow revealed no pulmonic valvular regurgitation. There is no pulmonic valvular stenosis. GREAT VESSELS The aortic root is normal in size. The ascending aorta is normal in size. Poor subcostal views availa ble. IVC is not well seen. PERICARDIAL EFFUSION There is no evidence of significant pericardial effusion. Critical Notification Critical Value: No <Conclusion> The left ventricular systolic function is normal. The ejection fraction is 55-60%. There is normal LV segmental wall motion. Transmitral Doppler flow pattern is Grade I-abnormal relaxation pattern. Trace mitral regurgitation. Trace tricuspid regurgitation. There is no evidence of significant pericardial effusion. Signed by : Clay Shelley, Electronically Approved : 06/29/2021 13:08:48
== END 2021-06-29 12:53 | disposition home or self-care (01) ==
LOC: CCL 08:38
PROVIDERS: ATTEND Internal Medicine Cardiovascular Disease
DX: I25.110 Atherosclerotic heart disease of native coronary artery with unstable angina pectoris (principal); I10 Essential (primary) hypertension; I48.91 Unspecified atrial fibrillation; E78.00 Pure hypercholesterolemia, unspecified; E11.9 Type 2 diabetes mellitus without complications; K21.9 Gastro-esophageal reflux disease without esophagitis; E66.9 Obesity, unspecified; J45.909 Unspecified asthma, uncomplicated; Z87.891 Personal history of nicotine dependence; Z79.82 Long term (current) use of aspirin; Z79.84 Long term (current) use of oral hypoglycemic drugs; Z98.890 Other specified postprocedural states
CPT/HCPCS: 36415; 80048; 85027; 85610; 93306; 93458; 99152; 99153; C1769; C1894; J1644; J2250; J3010; J3490; Q9967

== ENCOUNTER 2021-07-24 02:15 | Emergency (ER) | payer OTHER ==
[~2021-07-24] VITALS: Ht 170.2 cm; Wt 100.0 kg
[~2021-07-24 02:15] MED LIST changes: +FENO145T3 PO; +NITR0.4T22 SL
--- NOTE | 2021-07-24 02:29 | PHYS DOC ---
Past Medical History Past Medical History: Angina, Asthma, CAD, Diabetes-Type II, [place] Past Surgical History: Other Additional Past Surgical Histo: Cardiac stents Smoking Status: Former Smoker Alcohol Use: None Drug Use: None General Adult EDM: Chief Complaint: CHEST PAIN HPI: HPI: Patient is a 56 year old male with past medical history of cardiac disease presents with the chief complaint of chest pain. Patient states chest pain started, "a few hours ago". States in center of his chest without radiation. States took 3 nitro's with no relief. Denies any associated nausea vomiting diaphoresis or shortness of breath. Patient states pain resolved prior to arrival. Patient states he has chest pain daily. Currently denies chest pain. During my HPI patient playing solFenway Summer LLCire on his phone. He appears in no acute distress. EKG without acute ischemic change. Review of Systems: Review of Systems: Constitutional: Denies fever or chills. [] Eyes: Denies change in visual acuity. [] HENT: Denies nasal congestion or sore throat. [] Respiratory: Denies cough or shortness of breath. [] Cardiovascular: positive chest pain GI: Denies abdominal pain, nausea, vomiting, bloody stools or diarrhea. [] : Denies dysuria. [] Musculoskeletal: Denies back pain or joint pain. [] Integument: Denies rash. [] Neurologic: Denies headache, focal weakness or sensory changes. [] Endocrine: Denies polyuria or polydipsia. [] Lymphatic: Denies swollen glands. [] Psychiatric: Denies depression or anxiety. [] Heart Score: C/O Chest Pain: Yes HEART Score for Chest Pain: HEART Score for Chest Pain Response (Comments) Value History Moderately Suspicious 1 ECG Normal 0 Age >45 - < 65 1 Risk Factors >3 Risk Factors or Hx CAD 2 Troponin < Normal Limit 0 Total 4 Risk Factors: Risk Factors: DM, Current or recent (<one month) smoker, HTN, HLP, family history of CAD, obesity. Risk Scores: Score 0 - 3: 2.5% MACE over next 6 weeks - Discharge Home Score 4 - 6: 20.3% MACE over next 6 weeks - Admit for Clinical Observation Score 7 - 10: 72.7% MACE over next 6 weeks - Early Invasive Strategies Allergies: Allergies: Allergies Coded Allergies Type Severity Reaction Last Updated Verified No Known Drug Allergies 05/04/21 No Physical Exam: PE: Constitutional: Well developed, well nourished, no acute distress, non-toxic appearance. [] HENT: Normocephalic, atraumatic, bilateral external ears normal, oropharynx moist, no oral exudates, nose normal. [] Eyes: PERRLA, EOMI, conjunctiva normal, no discharge. [] Neck: Normal range of motion, no tenderness, supple, no stridor. [] Cardiovascular:Heart rate regular rhythm, no murmur [] Lungs & Thorax: Bilateral breath sounds clear to auscultation [] Abdomen: Bowel sounds normal, soft, no tenderness, no masses, no pulsatile masses. [] Skin: Warm, dry, no erythema, no rash. [] Back: No tenderness, no CVA tenderness. [] Extremities: No tenderness, no cyanosis, no clubbing, ROM intact, no edema. [] Neurologic: Alert and oriented X 3, normal motor function, normal sensory function, no focal deficits noted. [] Psychologic: Affect normal, judgement normal, mood normal. [] EKG: EKG: [] Performed at 0221 Rate [address] elevation No ST depression No acute [place] Radiology/Procedures: Radiology/Procedures: [] Impression: XR CHEST 1V History: Chest pain Comparison: CTA chest 05/04/2021 Technique: Portable AP radiograph of the chest. Findings: The lungs are mildly hypoinflated. No focal airspace consolidation, pleural effusion or pneumothorax. Cardiac mediastinal silhouette and pulmonary vasculature are within normal limits. Osseous structures and soft tissues are unremarkable. Impression: 1. No acute cardiopulmonary process. Course & Med Decision Making: Course & Med Decision Making Pertinent Labs and Imaging studies reviewed. (See chart for details) [] Dragon Disclaimer: Dragon Disclaimer: This electronic medical record was generated, in whole or in part, using a voice recognition dictation system. Departure Departure Impression: Primary Impression: Chest pain Disposition: HOME / SELF CARE / HOMELESS Condition: STABLE Referrals: NO PCP (PCP) Patient Instructions: Chest Pain (Nonspecific) ABEL HERNANDEZ DO Jul 24, 2021 02:29
[2021-07-24 02:36] LABS: BASO # 0.1 x10^3/uL (0.0-0.2); BASO % 1 % (0-3); EOS # 0.1 x10^3/uL (0.0-0.7); EOS % 1 % (0-3); HEMOGLOBIN 13.3 g/dL (13.0-17.5); LYMPH # 2.1 x10^3/uL (1.0-4.8); LYMPH % 36 % (24-48); MEAN CORPUSCULAR HEMOGLOBIN 30 pg (25-35); MEAN CORPUSCULAR HGB CONC 34 g/dL (31-37); MEAN CORPUSCULAR VOLUME 88 fL (79-100); MONO # 0.7 x10^3/uL (0.0-1.1); MONO % 12 % (0-9); NEUT # 2.9 x10^3/uL (1.8-7.7); NEUT % 49 % (31-73); PLATELET COUNT 262 x10^3/uL (140-400); RED BLOOD COUNT 4.43 x10^6/uL (4.30-5.70); WHITE BLOOD COUNT 5.8 x10^3/uL (4.0-11.0)
--- NOTE | 2021-07-24 02:38 | RAD ---
XR CHEST 1V History: Chest pain Comparison: CTA chest 05/04/2021 Technique: Portable AP radiograph of the chest. Findings: The lungs are mildly hypoinflated. No focal airspace consolidation, pleural effusion or pneumothorax. Cardiac mediastinal silhouette and pulmonary vasculature are within normal limits. Osseous structure s and soft tissues are unremarkable. Impression: 1. No acute cardiopulmonary process. Electronically signed by: Adan Lei MD (07/24/2021 2:36 AM) [facility]
[2021-07-24 02:43] LABS: CALCIUM 9.3 mg/dL (8.5-10.1); GFR 77.9; POTASSIUM 3.9 mmol/L (3.5-5.1)
[2021-07-24 02:49] LABS: ALBUMIN 3.8 g/dL (3.4-5.0); TOTAL BILIRUBIN 0.3 mg/dL (0.2-1.0); TOTAL PROTEIN 7.6 g/dL (6.4-8.2)
[2021-07-24 04:24] VITALS: BP 130/98
--- NOTE | 2021-07-24 06:43 | EKG ---
[facility] [address] [place] [address] Test Date: 2021-07-24 Test Time: 02:21:30 Pat Name: NORY SOSA Department: Room: Gender: M Husbandry Person: : 1965 Requested By: ABEL HERNANDEZ Order Number: [id number] Reading MD: Sukhwinder Dominguez Measurements Intervals Rigby Rate: 102 P: 63 RI: 180 QRS: 30 QRSD: 88 T: 59 QT: 322 QTc: 424 Interpretive Statements SINUS TACHYCARDIA MILD NONSPECIFIC ST T WAVE CHANGES Electronically Signed On 07-27-2021 10:28:22 AIX SYSTEM ADMINISTRATOR by Sukhwinder Dominguez
== END 2021-07-24 04:38 | disposition home or self-care (01) ==
LOC: ER 02:15
DX: R07.89 Other chest pain (principal); J45.909 Unspecified asthma, uncomplicated; I25.10 Atherosclerotic heart disease of native coronary artery without angina pectoris; E11.9 Type 2 diabetes mellitus without complications; I25.2 Old myocardial infarction
CPT/HCPCS: 36415; 71045; 80053; 84484; 85025; 93005; 99285

== ENCOUNTER 2021-09-09 19:15 | Emergency (ER) | payer OTHER ==
[~2021-09-09] VITALS: Ht 167.6 cm; Wt 98.3 kg
[~2021-09-09 19:15] MED LIST changes: +LOSA-362 PO; -LOSA25TA4 PO
--- NOTE | 2021-09-09 20:52 | PHYS DOC ---
Past Medical History Past Medical History: Angina, Asthma, CAD, Diabetes-Type II, Hypertension, [place] Past Surgical History: Other Additional Past Surgical Histo: Cardiac stents, NOSE SURGERY A CHILD Smoking Status: Former Smoker Alcohol Use: None Drug Use: None General Adult EDM: Chief Complaint: SHORTNESS OF BREATH HPI: HPI: Patient is a 56 year old male presenting with a chief complaint of shortness and fever x 6 days. Patient recently tested postive for COVID via rapid test as well as PCR on 09/03/2021. Patient denies increased shortness of breath upon exertion, denies any associated symptoms. Review of Systems: Review of Systems: Constitutional: tmax 102, denies chills Eyes: Denies redness or eye pain Respiratory: reports shortness of breath, denies cough Cardiovascular: Denies chest pain or palpitations GI: Denies abdominal pain, nausea, or vomiting : Denies dysuria or hematuria Integument: Denies rash or skin lesions Neurologic: Denies headache, focal weakness or sensory changes Complete systems were reviewed and found to be within normal limits, except as documented in this note. Heart Score: C/O Chest Pain: N/A Family History: Family History: no pertinent family history to this case Allergies: Allergies: Allergies Coded Allergies Type Severity Reaction Last Updated Verified No Known Drug Allergies 05/04/21 No Physical Exam: PE: Constitutional: Well developed, well nourished, non-toxic appearance HENT: Normocephalic, atraumatic Eyes: conjunctiva normal, no discharge Neck: Normal range of motion, no tenderness, supple Lungs & Thorax: No respiratory distress, equal chest rise and fall Abdomen: Soft, no tenderness Skin: Warm, dry, no erythema, no rash Back: No tenderness, no CVA tenderness Extremities: No tenderness, ROM intact Neurologic: Alert and oriented X 3, no focal deficits noted Psychologic: Affect normal, judgment normal EKG: EKG: @2102 Sinus Tach, normal rhythm. No ST segment elevation. 140bpm QT/QTc: 338/44 5 Radiology/Procedures: Radiology/Procedures: PROCEDURE: CHEST AP ONLY AP chest. HISTORY: Short of air, Covid positive AP view of the chest was compared with a study from June. Patient's taken a poor inspiration. There is elevation of the right diaphragm. Lung bases are poorly evaluated. There is a slight right perihilar infiltrate. IMPRESSION: 1. Slight right perihilar infiltrate. 2. Elevated right diaphragm. 3. Poor evaluation the lung bases. Electronically signed by: Nicolás Rocha MD (09/09/2021 11:08 PM) [facility] Course & Med Decision Making: Course & Med Decision Making Pertinent Labs and Imaging studies reviewed. (See chart for details) Patient presented to ED with a chief complaint of shortness of breath and a fever x 6 days after testing positive for covid. Patients hypotension and tachycardia were addressed. Patient states he would like to go home tonight if possible. [] Patient stable for discharge with outpatient follow-up with PCP. Discussed findings and plan with patient, who acknowledges understanding and agreement. Dragon Disclaimer: Dragon Disclaimer: This electronic medical record was generated, in whole or in part, using a voice recognition dictation system. Departure Departure Impression: Primary Impression: Viral syndrome Additional Impressions: COVID-19 Hypotension Qualified Codes: I95.9 - Hypotension, unspecified Hypomagnesemia Nausea Disposition: 01 HOME / SELF CARE / HOMELESS Condition: STABLE Referrals: MECHE PARKER MD (PCP) Patient Instructions: Fever, Adult, Endl-bd-[id number], Hypomagnesemia, Hypotension, [id number], Nausea, Adult, [id number], Viral Syndrome Additional Instructions: You have been tested for or diagnosed with COVID-19. It is an infection caused by a new type of coronavirus. COVID-19 will cause cold-like or mild flu symptoms in most. It can cause more severe symptoms like problems breathing in some. There is no treatment for COVID-19. The body will clear the infection over time. Self-care will help to ease discomfort. Steps to Take: Self-Care Rest as needed. Healthy habits may help you feel better. Steps include: Choose healthy foods including fruits and vegetables. Drink water throughout the day. Get plenty of sleep each night. If you smoke, try to quit. It may ease breathing. Avoid alcohol. Keep Others Healthy The virus can spread to others. Droplets are released every time you sneeze or cough. The droplets can get into the mouth, nose, or eyes of people near you and lead to infection. To lower the chances of spreading COVID-19 to others: Stay at home until your doctor has said it is safe to leave. If you tested positive this will mean staying isolated until both of the following are true: At least 7 days have passed since the start of illness. You are free of fever for at least 72 hours without the use of medicine. During this time: - Avoid public areas, events, or transportation. Do not return to work or school until your doctor has said it is safe to do so. - Call ahead if you need to go to a medical center. Let them know you may have COVID-19. It will help them guide you where to go. They may also ask you to wear a facemask when you come to the office. - If you call for emergency medical services, let them know you may have COVID- 19. While at home: - Try to avoid close contact with others. Stay about 6 feet away. - If possible, spend most of your time in a separate room from others. - Use a face mask if you will be in close contact with others such as sharing a room or vehicle. - Have someone wipe down common surfaces in the home. Use household piano mover every day on areas like doorknobs, counters, or sinks. - Cough or sneeze into a tissue. Throw the tissue away right after use. If a tissue is not available, cough or sneeze into your elbow. - Wash your hands often. Wash them after sneezing or coughing. Use soap and water and wash for at least 20 seconds. Alcohol based hand silver cleaner can be used if soap and water is not available. - Do not prepare food for others. Avoid sharing personal items like forks, spoons, or toothbrushes. - Avoid close contact with pets while you are sick. There is no evidence of the virus passing to pets. This is a safety step until more is known about this virus. Isolation can be frustrating. Social interaction can help. Keep in touch with friends and family through phone and tech options. You can still interact with others in your home, just keep a safe distance of about 6 feet. Follow-up: Your doctors office will check in with you to see if there are any changes in your health. You may be asked to keep track of symptoms to share with them. They will also let you know when you are clear to be in public again. Problems to Look Out For: Contact your doctor if your recovery is not going as you expect. Get emergency care if you have problems such as: - Trouble breathing - Nonstop chest pain or pressure - Changes in awareness, confusion, or problems waking - Lips or face have bluish color - Worsening of symptoms If you think you have an emergency, call for emergency medical services right away. As taken from [facility] [place] [facility] Ondansetron (ONDANSETRON ODT) 4 Mg Tab.rapdis 1 TAB PO PRN Q6-8HRS PRN for NAUSEA, #16 TAB Prov: MECHE ASCENCIO DO 09/09/21 MECHE ASCENCIO DO Sep 09, 2021 20:52
[2021-09-09] MEDS ORDERED: IV NORMAL SALINE 1000ML BAG 1,000 ML IV ONE ×2 (21:00→22:00)
[2021-09-09 21:34] LABS: BASO % 0 % (0-3); EOS % 0 % (0-3); HEMATOCRIT 40.6 % (39.0-53.0); HEMOGLOBIN 13.8 g/dL (13.0-17.5); LYMPH # 1.5 x10^3/uL (1.0-4.8); LYMPH % 30 % (24-48); MEAN CORPUSCULAR HEMOGLOBIN 30 pg (25-35); MEAN CORPUSCULAR HGB CONC 34 g/dL (31-37); MEAN CORPUSCULAR VOLUME 87 fL (79-100); MONO # 0.5 x10^3/uL (0.0-1.1); MONO % 10 % (0-9); NEUT # 3.1 x10^3/uL (1.8-7.7); NEUT % 60 % (31-73); PLATELET COUNT 174 x10^3/uL (140-400); RED BLOOD COUNT 4.66 x10^6/uL (4.30-5.70); RED CELL DISTRIBUTION WIDTH 13.3 % (11.5-14.5); WHITE BLOOD COUNT 5.1 x10^3/uL (4.0-11.0)
[2021-09-09 21:56] LABS: CALCIUM 9.3 mg/dL (8.5-10.1); CREATININE 1.7 mg/dL (0.7-1.3); GFR 42.2; POTASSIUM 3.8 mmol/L (3.5-5.1)
[2021-09-09] MEDS ORDERED: FAMOTIDINE 20 MG/2 ML VIAL IVP ONE (22:00)
[2021-09-09] MEDS ORDERED: KETOROLAC 30 MG/ML VIAL. IVP ONE (22:00)
[2021-09-09] MEDS ORDERED: ONDANSETRON PF 4 MG/2 ML VIAL. IVP ONE (22:00)
[2021-09-09 22:02] LABS: ALBUMIN 3.5 g/dL (3.4-5.0); ALBUMIN/GLOBULIN RATIO 0.7 (1.0-1.7); MAGNESIUM 1.3 mg/dL (1.8-2.4); TOTAL BILIRUBIN 0.3 mg/dL (0.2-1.0); TOTAL PROTEIN 8.7 g/dL (6.4-8.2)
[2021-09-09 22:10] LABS: CREATINE KINASE 41 U/L (39-308)
--- NOTE | 2021-09-09 23:10 | RAD ---
AP chest. HISTORY: Short of air, Covid positive AP view of the chest was compared with a study from June. Patient's taken a poor inspiration. The re is elevation of the right diaphragm. Lung bases are poorly evaluated. There is a slight right chrissie hilar infiltrate. IMPRESSION: 1. Slight right perihilar infiltrate. 2. Elevated right diaphragm. 3. Poor evaluation the lung bases. Electronically signed by: Nicolás Rocha MD (09/09/2021 11:08 PM) [facility]
[2021-09-09 23:37] VITALS: BP 101/62
[2021-09-09] MEDS ORDERED: ONDA4TAB12 PO (23:52)
[2021-09-10] MEDS ORDERED: MAGNESIUM CHLORIDE ER 64 MG TABLET.ER PO ONE
== END 2021-09-10 00:30 | disposition home or self-care (01) ==
LOC: ER 19:15
DX: U07.1 COVID-19 (principal); I95.9 Hypotension, unspecified; E83.42 Hypomagnesemia; R11.0 Nausea; J45.909 Unspecified asthma, uncomplicated; E11.9 Type 2 diabetes mellitus without complications; I10 Essential (primary) hypertension; I25.10 Atherosclerotic heart disease of native coronary artery without angina pectoris; I25.2 Old myocardial infarction; Z87.891 Personal history of nicotine dependence; Z95.5 Presence of coronary angioplasty implant and graft
CPT/HCPCS: 36415; 71045; 80053; 82553; 83690; 83735; 84484; 85025; 96361; 96374; 96375; 99285; J1885; J2405; J3490; J7030